=== PATIENT | male | born 1945 | race Caucasian/White ===

== ENCOUNTER 2019-01-22 11:32 | Emergency (ER) | payer OTHER ==
[~2019-01-22] VITALS: Ht 167.6 cm; Wt 72.6 kg
[~2019-01-22 11:32] MED LIST: ASPI-1153 PO; BETA1TAB20 PO; BIMA2.5D5 OP; BRI.2% OP; CARB15DR OP; DRISDOL PO; ENAL5TAB77 PO; LIP20 PO; SLO NIACIN PO; TIMO5DRO15 OP
[2019-01-22 11:34] VITALS: BP_SYST 152
--- NOTE | 2019-01-22 11:34 | NUR ---
Patient to ER bed 04 to gown for evaluation. Side rails up.
--- NOTE | 2019-01-22 11:36 | NUR ---
Pt brought by self, A&Ox4, pt presents to ER with positive orthostatics after he was in a medical center today, pt denies pain or any symptoms, respirations even and unlabored, cap refill <3, VSS, denies weakness, will continue to monitor.
--- NOTE | 2019-01-22 11:40 | NUR ---
Dr Chi at bedside examining patient
[2019-01-22 12:12] LABS: BASOPHILS % (AUTO) 0.3 % (0.0-2.0); EOSINOPHILS # (AUTO) 0.2 K/uL (0.0-0.4); EOSINOPHILS % (AUTO) 1.7 % (0.0-4.0); HEMATOCRIT 37.7 % (36-54); HEMOGLOBIN 12.9 g/dL (14.0-18.0); LYMPHOCYTES # (AUTO) 1.7 K/uL (1.0-5.5); LYMPHOCYTES % (AUTO) 15.3 % (20.5-51.5); MEAN CORPUSCULAR HEMOGLOBIN 32 pg (27-31); MEAN CORPUSCULAR HGB CONC 34 % (32-36); MEAN CORPUSCULAR VOLUME 94 fL (79.0-98.0); MONOCYTES # (AUTO) 0.7 K/uL (0.0-1.0); MONOCYTES % (AUTO) 6.1 % (1.7-9.3); NEUTROPHILS # (AUTO) 8.4 K/uL (1.8-7.7); NEUTROPHILS % (AUTO) 76.6 % (40.0-70.0); PLATELET COUNT (AUTO) 204 K/uL (130-430); RED BLOOD CELL COUNT(AUTO) 4.03 MIL/uL (4.2-6.2); RED CELL DISTRIBUTION WIDTH 13.8 % (9.0-15.0); WHITE BLOOD COUNT (AUTO) 10.9 K/uL (4.8-10.8)
[2019-01-22 12:21] LABS: ANION GAP 7 (5-15); CALCIUM 8.8 mg/dL (8.4-11.0); CHLORIDE 108 mmol/L (98-107); CREATININE 1.64 mg/dL (0.55-1.30); GLUCOSE 135 mg/dL (70-99); POTASSIUM 4.1 mmol/L (3.5-5.1); SODIUM SERUM 143 mmol/L (136-145); UREA NITROGEN, BLOOD 19 mg/dL (8-21)
[2019-01-22 12:22] LABS: PROTHROMBIN TIME 10.4 SECS (9.5-12.5)
[2019-01-22 12:27] LABS: ALANINE AMINOTRANSFERASE 17 U/L (12-78); ALBUMIN 3.7 g/dL (3.4-4.8); ASPARTATE AMINOTRANSFERASE 13 U/L (10-37); TOTAL BILIRUBIN 0.5 mg/dL (0.0-1.0)
--- NOTE | 2019-01-22 14:28 | NUR ---
Patient given written and verbal discharge instructions and verbalizes understanding. ER MD discussed with patient the results and treatment provided. Patient in stable condition. ID arm band removed. No Rx given. Patient educated on pain management and to follow up with PMD. Pain Scale 0/10 . Opportunity for questions provided and answered. Medication side effect fact sheet provided.
[2019-01-22 14:30] VITALS: BP_SYST 127
== END 2019-01-22 14:30 | disposition home or self-care (01) ==
LOC: SED 11:32
DX: I95.9 Hypotension, unspecified (principal); E78.00 Pure hypercholesterolemia, unspecified; E11.9 Type 2 diabetes mellitus without complications; Z79.82 Long term (current) use of aspirin; Z79.899 Other long term (current) drug therapy
CPT/HCPCS: 36415; 71045; 80053; 84484; 85025; 85610-TC; 85730-TC; 93005; 99284

== ENCOUNTER 2019-02-18 18:53 | Emergency (ER) | payer OTHER ==
[~2019-02-18] VITALS: Ht 167.6 cm; Wt 72.6 kg
[2019-02-18 18:59] VITALS: BP_SYST 150
--- NOTE | 2019-02-18 19:00 | NUR ---
Patient to ER bed 7 to gown for evaluation. Side rails up.
--- NOTE | 2019-02-18 19:02 | NUR ---
ER at bedside examining patient.
--- NOTE | 2019-02-18 19:03 | NUR ---
Pt presents to ED c/o HTN 176/101 at home.Pt has no acute distress noted. Pt denies CP or SOB.
--- NOTE | 2019-02-18 19:13 | NUR ---
Pt endorsed to JEEVAN RN
[2019-02-18] MEDS ORDERED: amLODIPine BESYLATE 5 MG TABLET PO ONE (19:15)
--- NOTE | 2019-02-18 19:25 | NUR ---
ASSUMED CARE. RECEIVED ALERT,ORIENTED. AFEBRILE, NOT IN ACUTE DITRESS. DENIES ANY PAIN OR DISCOMFORT. NW=621/92. OTHERWISE STABLE.
[2019-02-18 19:32] LABS: BASOPHILS # (AUTO) 0.1 K/uL (0.0-0.2); BASOPHILS % (AUTO) 0.5 % (0.0-2.0); EOSINOPHILS # (AUTO) 0.2 K/uL (0.0-0.4); EOSINOPHILS % (AUTO) 2.4 % (0.0-4.0); HEMATOCRIT 37.1 % (36-54); HEMOGLOBIN 12.7 g/dL (14.0-18.0); LYMPHOCYTES # (AUTO) 2.1 K/uL (1.0-5.5); LYMPHOCYTES % (AUTO) 20.9 % (20.5-51.5); MEAN CORPUSCULAR HEMOGLOBIN 32 pg (27-31); MEAN CORPUSCULAR HGB CONC 34 % (32-36); MEAN CORPUSCULAR VOLUME 94 fL (79.0-98.0); MONOCYTES % (AUTO) 9.6 % (1.7-9.3); NEUTROPHILS # (AUTO) 6.7 K/uL (1.8-7.7); NEUTROPHILS % (AUTO) 66.6 % (40.0-70.0); PLATELET COUNT (AUTO) 197 K/uL (130-430); RED BLOOD CELL COUNT(AUTO) 3.95 MIL/uL (4.2-6.2); RED CELL DISTRIBUTION WIDTH 14.2 % (9.0-15.0)
--- NOTE | 2019-02-18 19:37 | NUR ---
12 LEAD EKG DONE BY ER RELATIONSHIP MANAGEMENT LEAD.
[2019-02-18 19:44] LABS: ANION GAP 8 (5-15); CALCIUM 8.2 mg/dL (8.4-11.0); CHLORIDE 104 mmol/L (98-107); CREATININE 1.34 mg/dL (0.55-1.30); GLUCOSE 120 mg/dL (70-99); POTASSIUM 3.9 mmol/L (3.5-5.1); SODIUM SERUM 139 mmol/L (136-145); UREA NITROGEN, BLOOD 22 mg/dL (8-21)
--- NOTE | 2019-02-18 19:44 | NUR ---
NORVASC 5 MG PO GIVEN ORDERED.
[2019-02-18 19:55] LABS: ALANINE AMINOTRANSFERASE 18 U/L (12-78); ALBUMIN 3.3 g/dL (3.4-4.8); ASPARTATE AMINOTRANSFERASE 14 U/L (10-37); TOTAL BILIRUBIN 0.4 mg/dL (0.0-1.0)
--- NOTE | 2019-02-18 19:55 | NUR ---
URINE SPECIMEN COLLECTED AND SENT TO THE LAB.
[2019-02-18 20:08] LABS: BILIRUBIN,URINE NEGATIVE (NEGATIVE); BLOOD, URINE NEGATIVE (NEGATIVE); CLARITY/URINE CLEAR (CLEAR); COLOR,URINE YELLOW (YELLOW); GLUCOSE,URINE NEGATIVE (NEGATIVE); KETONES,URINE NEGATIVE (NEGATIVE); LEUKOCYTE ESTERASE ,URINE TRACE (NEGATIVE); NITRITE, URINE NEGATIVE (NEGATIVE); PROTEIN URINE NEGATIVE (NEGATIVE)
[2019-02-18 20:27] LABS: BACTERIA,URINE RARE /HPF (None Seen); RBC,URINE 0-3 /HPF (0-3)
[2019-02-18] MEDS ORDERED: CEPHALEXIN 500 MG CAPSULE PO ONE (20:30)
--- NOTE | 2019-02-18 20:56 | NUR ---
KEFLEX 500 MG PO GIVEN.
--- NOTE | 2019-02-18 21:10 | NUR ---
BP BETTER. MADE MADE AWARE. ER-MD BACK AT BEDSIDE TO RE-EVALUATE AND DISCUSS PLAN OF CARE WITH PATIENT AND FAMILY.
--- NOTE | 2019-02-18 21:25 | NUR ---
DISCHARGED STABLE AND IMPROVED. PRESCRIPTION,VERBAL AND WRITTEN AFTERCARE INSTRUCTIONS GIVEN TO PT.AND FAMILY. VERBALIZED UNDERSTANDING.
[2019-02-18 21:27] VITALS: BP_SYST 153
== END 2019-02-18 21:27 | disposition home or self-care (01) ==
LOC: SED 18:53
DX: I10 Essential (primary) hypertension (principal); N39.0 Urinary tract infection, site not specified; Z79.899 Other long term (current) drug therapy; E11.9 Type 2 diabetes mellitus without complications
CPT/HCPCS: 36415; 80053; 81000-TC; 84484; 85025; 93005; 99284

== ENCOUNTER 2021-07-15 10:11 | Emergency (ER) | payer OTHER ==
[~2021-07-15] VITALS: Ht 167.6 cm; Wt 67.1 kg
[~2021-07-15 10:11] MED LIST changes: -ASPI-1153 PO; +ASPI-1393 PO
--- NOTE | 2021-07-15 10:25 | NUR ---
PT CAME FROM HOME WITH CC OF PAIN WITH URINATION. PT WAS TREATED LAST MONTH FOR THE SAME ISSUE WITH ABX. PT IS STABLE, NAD, VSS, AAOx3, CONCERNED IT REALLY HURTS WITH URINATION.
[2021-07-15 10:27] VITALS: BP_SYST 136
--- NOTE | 2021-07-15 11:00 | NUR ---
ED MD AT BEDSIDE
[2021-07-15 11:04] LABS: BASOPHILS # (AUTO) 0.1 K/uL (0.0-0.2); BASOPHILS % (AUTO) 0.7 % (0.0-2.0); EOSINOPHILS # (AUTO) 0.2 K/uL (0.0-0.4); EOSINOPHILS % (AUTO) 2.8 % (0.0-4.0); HEMATOCRIT 40.8 % (36-54); LYMPHOCYTES # (AUTO) 1.5 K/uL (1.0-5.5); LYMPHOCYTES % (AUTO) 20.1 % (20.5-51.5); MEAN CORPUSCULAR HEMOGLOBIN 31 pg (27-31); MEAN CORPUSCULAR HGB CONC 34 % (32-36); MEAN CORPUSCULAR VOLUME 91 fL (79.0-98.0); MONOCYTES # (AUTO) 0.5 K/uL (0.0-1.0); MONOCYTES % (AUTO) 7.3 % (1.7-9.3); NEUTROPHILS # (AUTO) 5.1 K/uL (1.8-7.7); NEUTROPHILS % (AUTO) 69.1 % (40.0-70.0); PLATELET COUNT (AUTO) 197 K/uL (130-430); RED BLOOD CELL COUNT(AUTO) 4.49 MIL/uL (4.2-6.2); RED CELL DISTRIBUTION WIDTH 14.4 % (9.0-15.0); WHITE BLOOD COUNT (AUTO) 7.4 K/uL (4.8-10.8)
[2021-07-15 11:46] LABS: PROTHROMBIN TIME 10.3 SECS (9.5-12.5)
[2021-07-15 11:48] LABS: ANION GAP 10 (5-15); CALCIUM 9.4 mg/dL (8.4-11.0); CHLORIDE 103 mmol/L (98-107); CREATININE 1.71 mg/dL (0.55-1.30); GLUCOSE 170 mg/dL (70-99); POTASSIUM 4.2 mmol/L (3.5-5.1); SODIUM SERUM 140 mmol/L (136-145); UREA NITROGEN, BLOOD 27 mg/dL (8-21)
[2021-07-15 11:59] LABS: ALANINE AMINOTRANSFERASE 23 U/L (12-78); ALBUMIN 3.6 g/dL (3.4-4.8); ASPARTATE AMINOTRANSFERASE 12 U/L (10-37); TOTAL BILIRUBIN 0.4 mg/dL (0.0-1.0)
[2021-07-15 13:00] VITALS: BP_SYST 162
[2021-07-15 13:46] LABS: BILIRUBIN,URINE NEGATIVE (NEGATIVE); BLOOD, URINE 1+ (NEGATIVE); CLARITY/URINE TURBID (CLEAR); COLOR,URINE YELLOW (YELLOW); GLUCOSE,URINE NEGATIVE (NEGATIVE); KETONES,URINE NEGATIVE (NEGATIVE); LEUKOCYTE ESTERASE ,URINE 3+ (NEGATIVE); NITRITE, URINE NEGATIVE (NEGATIVE); PROTEIN URINE 1+ (NEGATIVE)
[2021-07-15 14:21] LABS: BACTERIA,URINE MANY /HPF (None Seen); MUCUS,URINE 1+ /LPF (None Seen); WBC,URINE >100 /HPF (0-3)
[2021-07-15] MEDS ORDERED: CEFI200T PO (14:28)
[2021-07-15] MEDS ORDERED: PHEN-726 PO (14:29)
[2021-07-15] MEDS ORDERED: cefTRIAXone 1 GM VIAL IM ONE (14:30)
[2021-07-15] MEDS ORDERED: NACL 0.9% 1,000 ML IV ONE (14:30)
[2021-07-15] MEDS ORDERED: cefTRIAXone 1 GM IVPB PREMIX 50 ML IV ONE (14:40)
--- NOTE | 2021-07-15 14:55 | NUR ---
IV NS COMPLETED
--- NOTE | 2021-07-15 14:55 | NUR ---
Patient given written and verbal discharge instructions and verbalizes understanding. ER MD discussed with patient the results and treatment provided. Patient in stable condition. ID arm band removed. IV catheter removed intact and dressing applied, no active bleeding. Rx of given. Patient educated on pain management and to follow up with PMD. Pain Scale 0/10. Opportunity for questions provided and answered. Medication side effect fact sheet provided.
== END 2021-07-15 14:55 | disposition home or self-care (01) ==
LOC: SED 10:11
DX: N39.0 Urinary tract infection, site not specified (principal); E11.9 Type 2 diabetes mellitus without complications; I10 Essential (primary) hypertension; Z79.899 Other long term (current) drug therapy
CPT/HCPCS: 36415; 80053; 81000; 83605; 84484; 85025; 85610; 87040; 87086; 87186; 93005; 96365; 99284; J0696

== ENCOUNTER 2021-08-05 01:05 | Inpatient (IN) | payer OTHER ==
[~2021-08-05] VITALS: Ht 165.1 cm; Wt 71.2 kg
[~2021-08-05 01:05] MED LIST changes: +CEFI200T PO; +PHEN-726 PO
[2021-08-05 01:10] VITALS: BP_SYST 178
--- NOTE | 2021-08-05 01:10 | NUR ---
Patient to ER bed 3 to gown for evaluation. Side rails up. Report given to Brianda AMARO.
--- NOTE | 2021-08-05 01:11 | NUR ---
Pt BIB ambulance due to increasing dementia. called 911 after pt locked himself in the room and was noted shadow boxing. Pt arrived to ED in no acute distress. A/O x1 to name. No acute signs of distress. Breathing adequately on RA. Addendum: 08/05/21 at 0339 by [email or web address] SONDRA Lamar
--- NOTE | 2021-08-05 01:12 | NUR ---
ER at bedside examining patient.
--- NOTE | 2021-08-05 02:45 | NUR ---
MOOSE collected and sent to lab.
--- NOTE | 2021-08-05 03:00 | NUR ---
# 20 gauge angiocath placed to L HAND. Use of asceptic technique. Opsite placed over site. Blood return noted. Blood for lab drawn from site. Flushed with 10 cc of normal saline. No evidence of infiltration noted. Patient tolerated well.
[2021-08-05 03:08] LABS: BASOPHILS % (AUTO) 0.4 % (0.0-2.0); EOSINOPHILS # (AUTO) 0.2 K/uL (0.0-0.4); EOSINOPHILS % (AUTO) 2.6 % (0.0-4.0); HEMATOCRIT 43.4 % (36-54); HEMOGLOBIN 14.6 g/dL (14.0-18.0); LYMPHOCYTES # (AUTO) 1.7 K/uL (1.0-5.5); LYMPHOCYTES % (AUTO) 23.1 % (20.5-51.5); MEAN CORPUSCULAR HEMOGLOBIN 31 pg (27-31); MEAN CORPUSCULAR HGB CONC 34 % (32-36); MEAN CORPUSCULAR VOLUME 91 fL (79.0-98.0); MONOCYTES # (AUTO) 0.6 K/uL (0.0-1.0); MONOCYTES % (AUTO) 8.3 % (1.7-9.3); NEUTROPHILS # (AUTO) 4.8 K/uL (1.8-7.7); NEUTROPHILS % (AUTO) 65.6 % (40.0-70.0); PLATELET COUNT (AUTO) 196 K/uL (130-430); RED BLOOD CELL COUNT(AUTO) 4.77 MIL/uL (4.2-6.2); RED CELL DISTRIBUTION WIDTH 14.7 % (9.0-15.0); WHITE BLOOD COUNT (AUTO) 7.3 K/uL (4.8-10.8)
[2021-08-05 04:06] LABS: ANION GAP 9 (5-15); CALCIUM 8.8 mg/dL (8.4-11.0); CHLORIDE 103 mmol/L (98-107); CREATININE 1.57 mg/dL (0.55-1.30); GLUCOSE 123 mg/dL (70-99); POTASSIUM 4.2 mmol/L (3.5-5.1); SODIUM SERUM 139 mmol/L (136-145); UREA NITROGEN, BLOOD 18 mg/dL (8-21)
[2021-08-05 04:11] LABS: ALANINE AMINOTRANSFERASE 25 U/L (12-78); ALBUMIN 3.9 g/dL (3.4-4.8); ASPARTATE AMINOTRANSFERASE 18 U/L (10-37); TOTAL BILIRUBIN 0.6 mg/dL (0.0-1.0)
--- NOTE | 2021-08-05 05:23 | NUR ---
Admit bed requested Patient will be admitted to care of . Admitted to MS unit. Diagnosis DEMENTIA Inpatient (Yes or No) YES Observation (Yes or No) NO Orientation concerns or request close to nursing station (Yes or No) YES Covid Status PENDING On vent or bipap NO Isolation requirements NO Needs a sitter NO From Home (Yes or if No enter name of facility) YES Requires Dialysis (Yes or No) NO Med Rec Completed (Yes of No) PENDING
--- NOTE | 2021-08-05 06:46 | NUR ---
Pt resting in bed. No acute signs of distress. Breathing adequately on RA.
--- NOTE | 2021-08-05 07:36 | NUR ---
Reviewed POC with pt., attempted to reorient him, alert though oriented to name only but redirectable and cooperative, denies any pain, only concern is to find his clothes so he can go home
--- NOTE | 2021-08-05 07:47 | NUR ---
unable to do med reconcilliation, pt. confused, unable to contact
[2021-08-05 08:00] VITALS: BP_SYST 188
--- NOTE | 2021-08-05 08:00 | NUR ---
ADMISSION NOTE Received patient from ER via wheelchair, received report from Obdulia AMARO. Patient admitted with diagnosis of dementia. Patient oriented to hospital routine, call light, toileting and safety-patient verbalized understanding. All needs met at this time, and safety checks made. Will continue to monitor.
--- NOTE | 2021-08-05 08:00 | NUR ---
Patient will be admitted to care of . Admitted to med surg unit. Will go to room 112B. Belongings list completed. Complete and up to date summary report printed. SBAR report given at bedside with Gauri opportunity for questions.
[2021-08-05 09:00] VITALS: BP_SYST 188
[2021-08-05] MEDS ORDERED: cloNIDine HCL 0.1 MG TABLET PO PRN (09:00)
[2021-08-05] MEDS: HYDROCHLOROTHIAZIDE 25 MG TABLET (HCTZ) PO SCH (09:31)
[2021-08-05 11:00] VITALS: BP_SYST 206
[2021-08-05] MEDS ORDERED: NALOXONE HCL 0.4 MG/ML AMP (NARCAN) IVP PRN ×2 (11:15)
[2021-08-05] MEDS ORDERED: DRISDOL 50000 UNIT PO SCH (11:15)
[2021-08-05] MEDS ORDERED: HYDROcodone/ACETAMIN 10-325 MG TAB PO PRN (11:15)
[2021-08-05] MEDS ORDERED: ENALAPRIL MALEATE Non-Formular 5 MG TABLET PO SCH (11:15)
[2021-08-05] MEDS ORDERED: HYDROcodone/ACETAMIN 5-325 MG TAB (NORCO/ VICODIN) PO PRN (11:15)
[2021-08-05] MEDS ORDERED: ONDANSETRON HCL 4 MG/2 ML VIAL IVP PRN (11:15)
[2021-08-05] MEDS ORDERED: ACETAMINOPHEN 325 MG TABLET PO PRN ×2 (11:15→12:15)
--- NOTE | 2021-08-05 11:27 | NUR ---
CONSULTATION PAGED REASON FOR CONSULTATIONlHTN WAS CONSULT CALED?Y PERSON WHO WAS NOTIFIED:MOODY CONSULTING PHYSICIAN:LEIGH FRYE AUTOMOBILE TAILLIGHT ASSEMBLER SPECIALTY:CARDIO AUTOMOBILE TAILLIGHT ASSEMBLER PHONE NUMBER:[phone] REQUESTING PHYSICIAN:ARIANA FRYE
[2021-08-05] MEDS ORDERED: lisinopriL 20 MG TABLET PO ONE (12:15)
[2021-08-05] MEDS ORDERED: ERGOCALCIFEROL 8000 UNITS/ML ORAL SOLUTION, 60 ML BOTTLE PO SCH (13:15)
--- NOTE | 2021-08-05 13:25 | NUR ---
ROUNDS Patient in bed resting with no sign of distress and denies pain. Patient is confused, oriented only to self and likes to get out of bed. He is able to walk with steady gait but has attempted to leave his room and wander the halls. Patient is able to be redirected. has expressed concern about her being combative when he is agitated. Safety checks made and all needs met at this time. Will continue to monitor.
[2021-08-05] MEDS ORDERED: NORMAL SALINE 5 ML DISP.SYRIN IVF SCH (14:00)
[2021-08-05] MEDS: NORMAL SALINE 5 ML DISP.SYRIN IVF SCH ×2 (14:00→22:00)
[2021-08-05 16:21] VITALS: BP_SYST 177
[2021-08-05] MEDS: PHENAZOPYRIDINE HCL 100 MG TABLET PO SCH ×2 (18:14→20:43)
--- NOTE | 2021-08-05 18:39 | NUR ---
PATIENT MOVED TO ROOM 114A Patient moved rooms for the comfort of his roommate. Patient is confused and wandering into his roommates space.
--- NOTE | 2021-08-05 19:27 | NUR ---
CLOSING NOTE Patient in bed resting. Patient has been very active and moving around the room. He attempts to leave and wander around the unit but is easily redirected. Patient is confused, oriented only to self. He was observed talking to himself. Patient currently has no IV access as he pulled out his previous access site, no active bleeding at this time. Safety checks made and all needs met at this time. Endorsed to retail shift supervisor nurse and answered all questions.
[2021-08-05 20:00] VITALS: BP_SYST 93
[2021-08-05] MEDS: ATORVASTATIN 20 MG TABLET PO SCH (20:43)
[2021-08-05] MEDS: QUEtiapine FUMARATE 25 MG TABLET PO SCH (20:43)
[2021-08-05] MEDS ORDERED: PEG 400/HYPROMELLOSE/GLYCERIN 15 ML DROPS OP PRN (21:00)
[2021-08-05] MEDS ORDERED: BIMATOPROST 0.01%, 2.5 ML EYE DROPS OP SCH (21:00)
[2021-08-05] MEDS: BRIMONIDINE TARTRATE 0.2% 5 mL EYE DROPS OP SCH (21:00)
[2021-08-05] MEDS: LATANOPROST 2.5 ML DROPS (XALATAN) OP SCH (21:00)
[2021-08-05] MEDS: TIMOLOL MALEATE 0.5% OPHTHALMIC DROPS 5 ML OP SCH (21:00)
[2021-08-06 00:30] VITALS: BP_SYST 109
[2021-08-06] MEDS: NORMAL SALINE 5 ML DISP.SYRIN IVF SCH ×3 (06:00→21:41)
[2021-08-06 07:52] LABS: BASOPHILS % (AUTO) 0.3 % (0.0-2.0); EOSINOPHILS # (AUTO) 0.2 K/uL (0.0-0.4); EOSINOPHILS % (AUTO) 2.1 % (0.0-4.0); HEMATOCRIT 40.2 % (36-54); HEMOGLOBIN 13.8 g/dL (14.0-18.0); LYMPHOCYTES # (AUTO) 2.8 K/uL (1.0-5.5); LYMPHOCYTES % (AUTO) 31.8 % (20.5-51.5); MEAN CORPUSCULAR HEMOGLOBIN 31 pg (27-31); MEAN CORPUSCULAR HGB CONC 34 % (32-36); MEAN CORPUSCULAR VOLUME 90 fL (79.0-98.0); MONOCYTES # (AUTO) 0.9 K/uL (0.0-1.0); MONOCYTES % (AUTO) 10.2 % (1.7-9.3); NEUTROPHILS # (AUTO) 4.8 K/uL (1.8-7.7); NEUTROPHILS % (AUTO) 55.6 % (40.0-70.0); PLATELET COUNT (AUTO) 196 K/uL (130-430); RED BLOOD CELL COUNT(AUTO) 4.47 MIL/uL (4.2-6.2); RED CELL DISTRIBUTION WIDTH 14.1 % (9.0-15.0); WHITE BLOOD COUNT (AUTO) 8.7 K/uL (4.8-10.8)
[2021-08-06] MEDS: lisinopriL 20 MG TABLET PO SCH (09:00)
[2021-08-06] MEDS ORDERED: SLO NIACIN PO SCH (09:00)
[2021-08-06] MEDS ORDERED: CEFIXIME PO SCH (09:00)
--- NOTE | 2021-08-06 09:00 | NUR ---
Reception Specialist VANITA Ramsey received a call from patient's Gwen requesting update on his care. VANITA provided Gwen with extension to Nurses station informed her patient's RN is You. Addendum: 08/06/21 at 1418 by Roxy RomelMark Rodrigueznicolas WALDRON PUBLIC WORKS INSPECTOR met with patient's RN to provide him patient's 's contact info in the event she was not able to call the nurses station. During this time patient's arrived and became visibly upset when she walked into patient's room and observed his behavior. VANITA utilized empathetic and reflective listening techniques to deescalate Gwen. She expressed concern for his mental state, and shared he has never been this confused before "only at night". Both SONDRA Orta and VANITA provided support to patient's . She also shared the patient receives benefits from the [place], and had reached out to them for support with his care. She expressed a need for support at home as they live alone. VANITA explored potential support system, but the patient stated they do not have children patient has 2 brothers but stated "they wont help". VANITA and RN provied continued support to patient's , including walking her back in to the room when she was ready. VANITA will continue to be available.
[2021-08-06 09:02] LABS: ANION GAP 12 (5-15); CALCIUM 8.4 mg/dL (8.4-11.0); CHLORIDE 103 mmol/L (98-107); CREATININE 1.84 mg/dL (0.55-1.30); GLUCOSE 102 mg/dL (70-99); PHOSPHORUS 4.4 mg/dL (2.7-4.5); POTASSIUM 3.9 mmol/L (3.5-5.1); SODIUM SERUM 140 mmol/L (136-145); UREA NITROGEN, BLOOD 21 mg/dL (8-21)
[2021-08-06] MEDS: ASPIRIN 81 MG TABLET(ECOTRIN) PO SCH (10:09)
[2021-08-06] MEDS: BETA-CAROTENE W-C & E/ZN/CU TABLET PO SCH (10:09)
[2021-08-06] MEDS: QUEtiapine FUMARATE 25 MG TABLET PO SCH ×2 (10:10→20:43)
[2021-08-06] MEDS: PHENAZOPYRIDINE HCL 100 MG TABLET PO SCH ×3 (10:10→20:38)
[2021-08-06] MEDS: HYDROCHLOROTHIAZIDE 25 MG TABLET (HCTZ) PO SCH (10:21)
[2021-08-06] MEDS: BRIMONIDINE TARTRATE 0.2% 5 mL EYE DROPS OP SCH ×2 (10:28→20:38)
[2021-08-06] MEDS: TIMOLOL MALEATE 0.5% OPHTHALMIC DROPS 5 ML OP SCH ×2 (10:28→20:38)
[2021-08-06] MEDS: CARVEDILOL 6.25 MG TABLET (COREG) PO SCH ×3 (10:30→20:48)
[2021-08-06] MEDS ORDERED: CARVEDILOL 6.25 MG TABLET (COREG) PO ONE (11:30)
[2021-08-06 12:00] VITALS: BP_SYST 128
--- NOTE | 2021-08-06 16:19 | NUR ---
Starch Crab BALLOON DESIGN PRINTER spoke with Senior Oracle Soa Developer Meghan regarding order for placement due to patient's dementia. According to Meghan, insurance will not cover if it is not a medical necessity. Patient's will need to cover cost, BALLOON DESIGN PRINTER informed disease case manager resources had been provided to spouse as well as spouse has already connected with VA to obtain information on supports.
[2021-08-06 16:42] VITALS: BP_SYST 94
[2021-08-06] MEDS: LATANOPROST 2.5 ML DROPS (XALATAN) OP SCH (20:38)
[2021-08-06 20:41] VITALS: BP_SYST 99
[2021-08-06] MEDS: ATORVASTATIN 20 MG TABLET PO SCH (20:43)
[2021-08-07 00:30] VITALS: BP_SYST 97
[2021-08-07] MEDS: NORMAL SALINE 5 ML DISP.SYRIN IVF SCH ×3 (01:13→22:00)
[2021-08-07 07:29] LABS: BASOPHILS % (AUTO) 0.5 % (0.0-2.0); EOSINOPHILS # (AUTO) 0.2 K/uL (0.0-0.4); EOSINOPHILS % (AUTO) 1.9 % (0.0-4.0); HEMATOCRIT 41.4 % (36-54); HEMOGLOBIN 14.2 g/dL (14.0-18.0); LYMPHOCYTES # (AUTO) 2.4 K/uL (1.0-5.5); LYMPHOCYTES % (AUTO) 27.7 % (20.5-51.5); MEAN CORPUSCULAR HEMOGLOBIN 31 pg (27-31); MEAN CORPUSCULAR HGB CONC 34 % (32-36); MEAN CORPUSCULAR VOLUME 91 fL (79.0-98.0); MONOCYTES # (AUTO) 0.9 K/uL (0.0-1.0); MONOCYTES % (AUTO) 10.7 % (1.7-9.3); NEUTROPHILS # (AUTO) 5.1 K/uL (1.8-7.7); NEUTROPHILS % (AUTO) 59.2 % (40.0-70.0); PLATELET COUNT (AUTO) 191 K/uL (130-430); RED BLOOD CELL COUNT(AUTO) 4.57 MIL/uL (4.2-6.2); RED CELL DISTRIBUTION WIDTH 14.1 % (9.0-15.0); WHITE BLOOD COUNT (AUTO) 8.6 K/uL (4.8-10.8)
[2021-08-07 08:40] LABS: ALANINE AMINOTRANSFERASE 15 U/L (12-78); ALBUMIN 3.7 g/dL (3.4-4.8); ANION GAP 6 (5-15); ASPARTATE AMINOTRANSFERASE 20 U/L (10-37); CALCIUM 8.7 mg/dL (8.4-11.0); CHLORIDE 103 mmol/L (98-107); CREATININE 2.57 mg/dL (0.55-1.30); GLUCOSE 103 mg/dL (70-99); POTASSIUM 4.1 mmol/L (3.5-5.1); SODIUM SERUM 137 mmol/L (136-145); TOTAL BILIRUBIN 0.7 mg/dL (0.0-1.0); UREA NITROGEN, BLOOD 31 mg/dL (8-21)
[2021-08-07] MEDS: lisinopriL 20 MG TABLET PO SCH (09:00)
[2021-08-07] MEDS: PHENAZOPYRIDINE HCL 100 MG TABLET PO SCH (09:20)
[2021-08-07] MEDS: BETA-CAROTENE W-C & E/ZN/CU TABLET PO SCH (09:20)
[2021-08-07] MEDS: ASPIRIN 81 MG TABLET(ECOTRIN) PO SCH (09:21)
[2021-08-07] MEDS: HYDROCHLOROTHIAZIDE 25 MG TABLET (HCTZ) PO SCH (09:21)
[2021-08-07] MEDS: CARVEDILOL 6.25 MG TABLET (COREG) PO SCH ×2 (09:22→21:00)
[2021-08-07] MEDS: QUEtiapine FUMARATE 25 MG TABLET PO SCH ×2 (09:23→21:00)
[2021-08-07] MEDS: TIMOLOL MALEATE 0.5% OPHTHALMIC DROPS 5 ML OP SCH (09:37)
[2021-08-07] MEDS: BRIMONIDINE TARTRATE 0.2% 5 mL EYE DROPS OP SCH (09:37)
--- NOTE | 2021-08-07 10:25 | NUR ---
Pt wandering in the hallway for 25 minutes. Nurse has attempted redirecting the patient multiple times to go back to [facility]. Pt is confused and disoriented. Unable to process directions and follow commands. Patient became agitated that the nurse was following him. Nurse explained to the patient that he that he was following the patient to ensure patient safety. Nurse brought a wheelchair for the patient to sit in, because the patient looked fatigued as evidenced by the pt bending over and putting his hands on his knee. Nurse offered to take the patient back to his room and asked the patient to sit down. Pt turned around to the nurse angry, but became wobbly. The nurse caught the patient and sat him down in the wheelchair. Patient became agitated and started trying to hit the nurse. Nurse asked other staff for help. At this point, a second nurse came in and deescalated. Pt is currently sitting by the window looking outside. notified. New order for a one itme dose of Ativan 2mg IM. Will continue to monitor
[2021-08-07] MEDS ORDERED: LORazepam 2 MG/ML VIAL IM ONE (11:15)
--- NOTE | 2021-08-07 13:30 | NUR ---
is currently at bedside talking to the patient. She said that the patient is acting paranoid and saying that people are following him and trying to kill him. Nurse administered Ativan Im while family was in the room. PT is currently sitting up and eating lunch with family in the room. Will continue to monitor
--- NOTE | 2021-08-07 13:50 | NUR ---
is leaving the unit. States that she is unable to handle the patient as he is too confused to be able to redirect. Will continue to monitor
--- NOTE | 2021-08-07 14:20 | NUR ---
S/FALL REPORTED BY ASHLEE RN REG NURSE THAT HE FOUND PATIENT ON THE FLOOR LYINNG ON HIS RIGHT SIDE FACING THE WINDOW CLOSED TO THE LEFT SIDE OF THE BED. PER NURSE NO FURTHER INJURY NOTED. PATIENT HAS DEMENTIA, WONDER AROUND THE ROOM AND HALLWAY, GOES TO A DIFFERENT ROOM. NOTIFIED REED AND MADE AWARE, AGREED TO PUT BILATERAL RESTRAINT TO PATIENT. DR BOWERS MADE AWARE OF RECENT FALL
--- NOTE | 2021-08-07 16:16 | NUR ---
RADIOLOGY ATTEMPTED TO TAKE XRAYS AND CT OF THE CHEST. PT IS MOVING TOO MUCH TO ALLOW FOR A CLEAR IMAGE. NOTIFIED. NEW ORDERS FOR HALIDOL AND BENADRYL PRN FOR AGITATION. WILL CONTINUE TO MONITOR
--- NOTE | 2021-08-07 16:27 | NUR ---
Superintendent Job PORTRAIT CONSULTANT attempted contact with Bunch Breaker Machine Operator Meghan per request of apartment property manager Zeny as is expressing concern over placement. PORTRAIT CONSULTANT informed RN that patient's has been provided with resources to begin seeking support including her having already contacted [facility] for benefits.
[2021-08-07] MEDS ORDERED: DIPHENHYDRAMINE HCL 50 MG CAPSULE PO PRN (16:30)
[2021-08-07] MEDS: HALOPERIDOL LACTATE 5 MG/ML VIAL IM PRN ×2 (17:25→21:43)
--- NOTE | 2021-08-07 17:31 | NUR ---
PT RECEIVED HALDOL IM INJECTION. VS ARE 115/74, HR 84 O2 95%. RADIOLOGY WILL BE PERFORMING CT OF THE HEAD, AND XRAY OF THE HIP AND ELBOW FOLLOWING STATUS POST FALL. WILL CONTINUE TO MONITOR
[2021-08-07] MEDS: BRIMONIDINE TARTRATE 0.2% 5 mL EYE DROPS BOTH EYES SCH ×2 (17:34→22:42)
[2021-08-07] MEDS: ATORVASTATIN 20 MG TABLET PO SCH (21:00)
[2021-08-07] MEDS: LATANOPROST 2.5 ML DROPS (XALATAN) BOTH EYES SCH (21:00)
--- NOTE | 2021-08-07 21:45 | NUR ---
UPON ATTEMPTING TO CHECK PT'S BP PT CLENCHED FISTS AND BEGAN TO POSTURE AND ATTEMPT TO SHAKE/REMOVE BP CUFF. PT MEDICATED FOR AGITATION.
[2021-08-07] MEDS: TIMOLOL MALEATE 0.5% OPHTHALMIC DROPS 5 ML BOTH EYES SCH (22:41)
[2021-08-08] MEDS: HALOPERIDOL LACTATE 5 MG/ML VIAL IM PRN (04:57)
[2021-08-08] MEDS: NORMAL SALINE 5 ML DISP.SYRIN IVF SCH ×3 (04:59→22:50)
--- NOTE | 2021-08-08 08:00 | NUR ---
received asleep, no IV line, not on respiratory distress. breakfast served, ate one slice of bread and half of orange and few sips of water. calm and cooperative, alert and oriented x 4
[2021-08-08] MEDS: TIMOLOL MALEATE 0.5% OPHTHALMIC DROPS 5 ML BOTH EYES SCH ×2 (08:35→20:57)
[2021-08-08] MEDS: QUEtiapine FUMARATE 25 MG TABLET PO SCH ×2 (08:35→20:56)
[2021-08-08] MEDS: ASPIRIN 81 MG TABLET(ECOTRIN) PO SCH (08:35)
[2021-08-08] MEDS: BRIMONIDINE TARTRATE 0.2% 5 mL EYE DROPS BOTH EYES SCH ×3 (08:35→20:57)
[2021-08-08] MEDS: lisinopriL 20 MG TABLET PO SCH (08:37)
[2021-08-08] MEDS: CARVEDILOL 6.25 MG TABLET (COREG) PO SCH ×2 (08:37→20:56)
[2021-08-08] MEDS: HYDROCHLOROTHIAZIDE 25 MG TABLET (HCTZ) PO SCH (08:38)
[2021-08-08] MEDS: BETA-CAROTENE W-C & E/ZN/CU TABLET PO SCH (09:45)
--- NOTE | 2021-08-08 13:00 | NUR ---
visited by family member, calm and cooperative since morning, able to void 3 times and ambulates with assist to restroom, on his third attempt he was shaking on his knees and brought back to his bed with the help of his brother. able to communicate well with no confusion episodes noted
--- NOTE | 2021-08-08 15:24 | NUR ---
NEPHRO CONSULT: LEFT MESSAGE TO DR MARILYN BUI RE:NEVA.
[2021-08-08] MEDS: D5/0.45 NS 1,000 ML IV SCH ×2 (17:00→22:51)
--- NOTE | 2021-08-08 17:26 | NUR ---
IV inserted at right hand G22, IV fluid of d5 .45 nacl started as ordered at 100cc/hr, offered apple juice and finished 3 cups or 350ml in total.
[2021-08-08 20:00] VITALS: BP_SYST 151
[2021-08-08] MEDS: ATORVASTATIN 20 MG TABLET PO SCH (20:56)
[2021-08-08] MEDS: LATANOPROST 2.5 ML DROPS (XALATAN) BOTH EYES SCH (20:57)
[2021-08-09] MEDS: NORMAL SALINE 5 ML DISP.SYRIN IVF SCH ×3 (06:08→22:38)
--- NOTE | 2021-08-09 06:41 | NUR ---
closing note patient is no longer on restraints. He is noted to be confused but is able to redirect. He ate 75% of his dinner. patient took his medication with no issues. he stated he had to urinate he was given the urinal. patient took his medication with no issues. Three times during the night he tried to get out of his bed but was easily redirected. UA was collected and taken to the lab.
[2021-08-09 06:58] LABS: BILIRUBIN,URINE NEGATIVE (NEGATIVE); BLOOD, URINE NEGATIVE (NEGATIVE); CLARITY/URINE CLEAR (CLEAR); COLOR,URINE YELLOW (YELLOW); GLUCOSE,URINE NEGATIVE (NEGATIVE); KETONES,URINE NEGATIVE (NEGATIVE); LEUKOCYTE ESTERASE ,URINE NEGATIVE (NEGATIVE); NITRITE, URINE POSITIVE (NEGATIVE); PH,URINE 5.5 (5.0-8.0); PROTEIN URINE NEGATIVE (NEGATIVE)
[2021-08-09 07:20] LABS: BACTERIA,URINE FEW /HPF (None Seen); HYALINE CASTS, URINE 0-10 /LPF (None Seen); MUCUS,URINE 2+ /LPF (None Seen); RBC,URINE 0-3 /HPF (0-3)
[2021-08-09 08:00] VITALS: BP_SYST 105; BP_SYST 109
[2021-08-09] MEDS: BRIMONIDINE TARTRATE 0.2% 5 mL EYE DROPS BOTH EYES SCH ×3 (08:24→21:33)
[2021-08-09] MEDS: TIMOLOL MALEATE 0.5% OPHTHALMIC DROPS 5 ML BOTH EYES SCH ×2 (08:24→21:33)
[2021-08-09] MEDS: BETA-CAROTENE W-C & E/ZN/CU TABLET PO SCH (08:25)
[2021-08-09] MEDS: ASPIRIN 81 MG TABLET(ECOTRIN) PO SCH (08:25)
[2021-08-09] MEDS: QUEtiapine FUMARATE 25 MG TABLET PO SCH ×2 (08:25→21:29)
[2021-08-09] MEDS: CARVEDILOL 6.25 MG TABLET (COREG) PO SCH ×2 (08:26→21:29)
[2021-08-09 08:29] LABS: BASOPHILS % (AUTO) 0.4 % (0.0-2.0); EOSINOPHILS # (AUTO) 0.2 K/uL (0.0-0.4); EOSINOPHILS % (AUTO) 2.3 % (0.0-4.0); HEMATOCRIT 41.7 % (36-54); HEMOGLOBIN 14.2 g/dL (14.0-18.0); LYMPHOCYTES # (AUTO) 2.1 K/uL (1.0-5.5); MEAN CORPUSCULAR HEMOGLOBIN 31 pg (27-31); MEAN CORPUSCULAR HGB CONC 34 % (32-36); MEAN CORPUSCULAR VOLUME 91 fL (79.0-98.0); MONOCYTES # (AUTO) 0.8 K/uL (0.0-1.0); MONOCYTES % (AUTO) 10.2 % (1.7-9.3); NEUTROPHILS # (AUTO) 4.6 K/uL (1.8-7.7); NEUTROPHILS % (AUTO) 60.1 % (40.0-70.0); PLATELET COUNT (AUTO) 181 K/uL (130-430); RED CELL DISTRIBUTION WIDTH 14.1 % (9.0-15.0); WHITE BLOOD COUNT (AUTO) 7.7 K/uL (4.8-10.8)
[2021-08-09 08:41] LABS: ANION GAP 9 (5-15); CALCIUM 8.1 mg/dL (8.4-11.0); CHLORIDE 100 mmol/L (98-107); CREATININE 2.53 mg/dL (0.55-1.30); GLUCOSE 127 mg/dL (70-99); POTASSIUM 4.1 mmol/L (3.5-5.1); SODIUM SERUM 136 mmol/L (136-145); UREA NITROGEN, BLOOD 41 mg/dL (8-21)
[2021-08-09] MEDS: amLODIPine BESYLATE 5 MG TABLET PO SCH (09:00)
[2021-08-09 12:18] VITALS: BP_SYST 106
[2021-08-09] MEDS: D5/0.45 NS 1,000 ML IV SCH ×2 (16:33→16:36)
[2021-08-09 16:42] VITALS: BP_SYST 110
[2021-08-09 16:42] LABS: URINE SODIUM, RANDOM 47 mmol/L (40-220)
--- NOTE | 2021-08-09 19:37 | NUR ---
ENDORSEMENT BEDSIDE SHIFT REPORT GIVEN TO NIGHT RN FOR CONTINUATION OF CARE
[2021-08-09] MEDS: ATORVASTATIN 20 MG TABLET PO SCH (21:29)
[2021-08-09] MEDS: LATANOPROST 2.5 ML DROPS (XALATAN) BOTH EYES SCH (21:30)
[2021-08-09 21:36] VITALS: BP_SYST 126
[2021-08-10 00:20] VITALS: BP_SYST 160
[2021-08-10] MEDS: D5/0.45 NS 1,000 ML IV SCH ×2 (02:21→15:17)
[2021-08-10] MEDS: NORMAL SALINE 5 ML DISP.SYRIN IVF SCH ×3 (06:18→21:38)
[2021-08-10 07:05] LABS: BASOPHILS % (AUTO) 0.4 % (0.0-2.0); EOSINOPHILS # (AUTO) 0.1 K/uL (0.0-0.4); EOSINOPHILS % (AUTO) 1.9 % (0.0-4.0); HEMATOCRIT 40.8 % (36-54); LYMPHOCYTES # (AUTO) 1.7 K/uL (1.0-5.5); LYMPHOCYTES % (AUTO) 21.7 % (20.5-51.5); MEAN CORPUSCULAR HEMOGLOBIN 31 pg (27-31); MEAN CORPUSCULAR HGB CONC 34 % (32-36); MEAN CORPUSCULAR VOLUME 90 fL (79.0-98.0); MONOCYTES # (AUTO) 0.7 K/uL (0.0-1.0); MONOCYTES % (AUTO) 9.6 % (1.7-9.3); NEUTROPHILS # (AUTO) 5.1 K/uL (1.8-7.7); NEUTROPHILS % (AUTO) 66.4 % (40.0-70.0); PLATELET COUNT (AUTO) 189 K/uL (130-430); RED BLOOD CELL COUNT(AUTO) 4.52 MIL/uL (4.2-6.2); RED CELL DISTRIBUTION WIDTH 13.9 % (9.0-15.0); WHITE BLOOD COUNT (AUTO) 7.6 K/uL (4.8-10.8)
[2021-08-10 07:30] LABS: ALANINE AMINOTRANSFERASE 16 U/L (12-78); ALBUMIN 3.5 g/dL (3.4-4.8); ANION GAP 7 (5-15); ASPARTATE AMINOTRANSFERASE 22 U/L (10-37); CALCIUM 8.2 mg/dL (8.4-11.0); CHLORIDE 103 mmol/L (98-107); CREATININE 2.04 mg/dL (0.55-1.30); GLUCOSE 123 mg/dL (70-99); PHOSPHORUS 2.9 mg/dL (2.7-4.5); POTASSIUM 3.7 mmol/L (3.5-5.1); SODIUM SERUM 137 mmol/L (136-145); TOTAL BILIRUBIN 0.6 mg/dL (0.0-1.0); UREA NITROGEN, BLOOD 31 mg/dL (8-21)
--- NOTE | 2021-08-10 08:00 | NUR ---
Opening notes: Patient resting in bed. Breathing even and non labored to RA. Patient is confused. Sitter at bedside. Fall, safety and aspiration measures reinforced. Call light within reach.
[2021-08-10 08:05] VITALS: BP_SYST 143
[2021-08-10] MEDS: QUEtiapine FUMARATE 25 MG TABLET PO SCH ×2 (10:07→21:33)
[2021-08-10] MEDS: amLODIPine BESYLATE 5 MG TABLET PO SCH (10:08)
[2021-08-10] MEDS: ASPIRIN 81 MG TABLET(ECOTRIN) PO SCH (10:08)
[2021-08-10] MEDS: BRIMONIDINE TARTRATE 0.2% 5 mL EYE DROPS BOTH EYES SCH ×3 (10:08→21:35)
[2021-08-10] MEDS: TIMOLOL MALEATE 0.5% OPHTHALMIC DROPS 5 ML BOTH EYES SCH ×2 (10:09→21:35)
[2021-08-10] MEDS: BETA-CAROTENE W-C & E/ZN/CU TABLET PO SCH (10:22)
[2021-08-10] MEDS: CARVEDILOL 6.25 MG TABLET (COREG) PO SCH ×2 (10:22→21:34)
--- NOTE | 2021-08-10 11:58 | NUR ---
Riveter Hand VANITA Ramsey contacted patient's Gwen Bunn to obtain an update on efforts to locate patient care as she has expressed she is unable to take him home. Gwen stated she has been in contact with a facility in [place] (unable to recall name of facility) and was making efforts to address the financial needs including a meeting today with patient's [employer] to inquire into receiving money from an annuity. She is also continuing exploring supports from patient's VA benefits. She also shared she has a niece who is helping her, but she resides in [place] and is only here for a short time. RAILROAD COMMISSIONER provided her with a number for the following program - [facility] - VET Assist Program RAILROAD COMMISSIONER attempted to provide her with information for [facility], but she declined due to her brother in law stating "[place] free[place] and traffic and he gets agitated with the noise'. RAILROAD COMMISSIONER encouraged to explore additional options that may be helpful in the event the current facility she is wanting is not financially feasible. RAILROAD COMMISSIONER will continue to be available as needed
[2021-08-10 12:50] VITALS: BP_SYST 137
[2021-08-10] MEDS: LORazepam 2 MG/ML VIAL IVP PRN (13:08)
--- NOTE | 2021-08-10 14:20 | NUR ---
Dietitian Recommendations * Consider [facility] diet Please refer to Nutrition Assessment for details. Addendum: 08/10/21 at [address] Amended: Links added.
[2021-08-10 16:56] VITALS: BP_SYST 134
--- NOTE | 2021-08-10 19:02 | NUR ---
CLOSING NOTES: PATIENT RESTING IN BED. CONFUSED. SITTER AT BEDSIDE. NO S/S OF ACUTE DISTRESS NOTED. FALL AND SAFETY MEASURES PROVIDED. CALL LIGHT WITHIN REACH.
[2021-08-10 20:00] VITALS: BP_SYST 132
[2021-08-10] MEDS: LATANOPROST 2.5 ML DROPS (XALATAN) BOTH EYES SCH (21:00)
[2021-08-10] MEDS: ATORVASTATIN 20 MG TABLET PO SCH (21:32)
[2021-08-10] MEDS: HALOPERIDOL LACTATE 5 MG/ML VIAL IM PRN (23:59)
[2021-08-11 00:25] VITALS: BP_SYST 111
[2021-08-11] MEDS: NORMAL SALINE 5 ML DISP.SYRIN IVF SCH ×3 (05:21→21:02)
--- NOTE | 2021-08-11 05:22 | NUR ---
I TRIED TO ATTEMPT TO RE-INSERT AN IV BUT PT WAS NOT COOPERATIVE, CONFUSED AND REFUSED
[2021-08-11] MEDS: CARVEDILOL 6.25 MG TABLET (COREG) PO SCH ×2 (09:00→21:00)
--- NOTE | 2021-08-11 09:05 | NUR ---
Real Estate Financial Analyst VANITA Ramsey contacted patient's spouse Gwen Bunn to obtain an update on her efforts to secure placement for patient. Mrs. Bunn. She shared she has contacted [facility] and one other facility, but according to her the costs would be about $8,000. She also shared she has not been able to meet with VA disability representative because she needed to utilize an office in [facility] and she went to one in [place]. VANITA provided her contact and address info for [facility] [place] [address] MIDWIFE [employer] BIRTH CENTER OWNER inquired into her ability and feelings of safety if she was to bring patient home, and if she can utilize family supports while she secures a placement. Mrs. Bunn expressed wanting to bring him home but according to her she didn't know this was an option as she had been told he was exhibiting aggressive behavior. She also shared she will now be exploring nighttime caregiver options as she shares this is when his behaviors escalate. Mrs. Bunn expressed that she is continuously working to secure support and/or placement as she understands he is ready for discharge. She shared that she is experiencing financial barriers due to the high cost of care. She explored utilizing patient's senior living funds, but according to her she was told she could only collect this when patient is . MIDWIFE AND BIRTH CENTER OWNER will continue to be available as needed Addendum: 08/11/21 at 1535 by Roxy WALDRON VANITA Ramsey attempted contact with [facility] to obtain information on their waiver program and if this includes dementia care. Left message requesting call back. Addendum: 08/12/21 at 0842 by Roxy WALDRON VANITA Ramsey made another attempt to contact Libia Carreon at [facility] to obtain info on elgiblity criteria for waiver program. Message was left requesting call back.
[2021-08-11 09:25] VITALS: BP_SYST 91
[2021-08-11] MEDS: QUEtiapine FUMARATE 25 MG TABLET PO SCH ×2 (09:29→21:00)
[2021-08-11] MEDS: amLODIPine BESYLATE 5 MG TABLET PO SCH (09:30)
[2021-08-11] MEDS: ASPIRIN 81 MG TABLET(ECOTRIN) PO SCH (09:30)
[2021-08-11] MEDS: TIMOLOL MALEATE 0.5% OPHTHALMIC DROPS 5 ML BOTH EYES SCH ×2 (09:31→21:01)
[2021-08-11] MEDS: BRIMONIDINE TARTRATE 0.2% 5 mL EYE DROPS BOTH EYES SCH ×3 (09:31→21:01)
[2021-08-11] MEDS: D5/0.45 NS 1,000 ML IV SCH ×3 (10:45→21:12)
[2021-08-11 10:46] LABS: ANION GAP 10 (5-15); CALCIUM 8.3 mg/dL (8.4-11.0); CHLORIDE 103 mmol/L (98-107); CREATININE 1.82 mg/dL (0.55-1.30); GLUCOSE 143 mg/dL (70-99); SODIUM SERUM 137 mmol/L (136-145); UREA NITROGEN, BLOOD 31 mg/dL (8-21)
[2021-08-11 12:09] VITALS: BP_SYST 102
[2021-08-11 16:00] VITALS: BP_SYST 148
[2021-08-11] MEDS: BETA-CAROTENE W-C & E/ZN/CU TABLET PO SCH (16:04)
[2021-08-11 20:00] VITALS: BP_SYST 105
[2021-08-11] MEDS: ATORVASTATIN 20 MG TABLET PO SCH (20:59)
[2021-08-11] MEDS: LATANOPROST 2.5 ML DROPS (XALATAN) BOTH EYES SCH (21:00)
--- NOTE | 2021-08-11 22:13 | NUR ---
PATIENT IN BED. NO ACUTE DISTRESS NOTED. REMAINS WITH A SITTER FOR SAFETY. WILL CONTINUE TO MONITOR.
[2021-08-12] VITALS: BP_SYST 95
[2021-08-12] MEDS: D5/0.45 NS 1,000 ML IV SCH ×2 (05:06→17:09)
[2021-08-12] MEDS: NORMAL SALINE 5 ML DISP.SYRIN IVF SCH ×3 (05:06→21:37)
--- NOTE | 2021-08-12 07:29 | NUR ---
OPENING NOTE Patient resting in bed with eyes closed. No sign of distress or pain. Nurse at bedside for direct observation. IV is intact and running prescribed fluids. All needs met at this time, will continue to monitor.
[2021-08-12 08:00] VITALS: BP_SYST 96
[2021-08-12] MEDS: QUEtiapine FUMARATE 25 MG TABLET PO SCH ×2 (08:38→21:36)
--- NOTE | 2021-08-12 08:38 | NUR ---
Deer Farmer NUISANCE WILDLIFE CONTROL OPERATOR Roxy received a message from [employer] Director Cardiovascular Meghan inquiring about patient's Gwen's progress on discharge plans. NUISANCE WILDLIFE CONTROL OPERATOR attempted to return call, voicemail left
[2021-08-12] MEDS: amLODIPine BESYLATE 5 MG TABLET PO SCH (08:39)
[2021-08-12] MEDS: ASPIRIN 81 MG TABLET(ECOTRIN) PO SCH (08:40)
[2021-08-12] MEDS: BRIMONIDINE TARTRATE 0.2% 5 mL EYE DROPS BOTH EYES SCH ×3 (08:40→21:38)
[2021-08-12] MEDS: TIMOLOL MALEATE 0.5% OPHTHALMIC DROPS 5 ML BOTH EYES SCH ×2 (08:40→21:39)
[2021-08-12] MEDS: CARVEDILOL 6.25 MG TABLET (COREG) PO SCH ×2 (08:42→21:36)
--- NOTE | 2021-08-12 10:02 | NUR ---
Manager Beauty VANITA Ramsey contacted patient's Gwen Bunn to obtain an update on progress towards patient's discharge plan. Mrs. Bunn shared she is continuing to work on locating a "home" for her that is within her budget and she has explored hiring a nurse/caregiver for night time care. She stated she feels safe bringing him home while she continues working on this, and will be able to pick him up later this afternoon. VANITA updated patient's nurse Gauri with Mrs. Bunn plan for discharge. VANITA will continue to be available as needed
[2021-08-12 12:00] VITALS: BP_SYST 100
--- NOTE | 2021-08-12 13:15 | NUR ---
ROUNDS Patient resting in bed, no sign of distress. Patient denies pain. Patient was able to get out of bed and ambulate once around the unit with assistance and observation. He is oriented to self and at times, time and place. For example, patient stated that he knew this upcoming Tuesday was mothers day. Patient has had an excellent appetite today and has been continent. All needs met at this time, and safety checks made. Will continue to monitor.
[2021-08-12 13:34] VITALS: BP_SYST 100
--- NOTE | 2021-08-12 14:08 | NUR ---
D/C EDGAR Holcomb, charge nurse, spoke with Dr Dejesus and asked if the patient could be discharged. , per [facility] Speeder Worker, states that is ready and able to receive patient at home. Dr Dejesus does not want to discharge patient until creatinine levels are lower.
--- NOTE | 2021-08-12 15:02 | NUR ---
Agricultural Engineering Technicians VANITA Roxy received an update from patient's nurse sharing patient would not be discharged this day. RN FACULTY attempted contact with patient's Gwen Bunn to inform her patient would not be discharged today. Voicemail was left providing update and requesting call back. VANITA Ramsey will continue to be available as needed
--- NOTE | 2021-08-12 15:34 | NUR ---
NEW IV PLACED IV on right forearm infiltrated. New 20g IV placed on left forearm. Old IV removed, no active bleeding. Prescribed fluids running.
[2021-08-12 16:00] VITALS: BP_SYST 142
[2021-08-12] MEDS: BETA-CAROTENE W-C & E/ZN/CU TABLET PO SCH (16:08)
--- NOTE | 2021-08-12 17:47 | NUR ---
ROUNDS Patient sitting up in bed eating dinner. He is alert and oriented to self. He has been asking to go home. Patient has been able to ambulate to the restroom with assistance. Complaining of constipation, paged for orders. Patient has made some attempts to get out of bed and wander, able to be redirected. All needs met at this time and safety checks made. Nurse at bedside for direct observation. Will continue to monitor.
--- NOTE | 2021-08-12 18:24 | NUR ---
CLOSING NOTE Patient in bed resting, no sign of distress or pain. Patient is alert but confused; oriented only to self at this time. IV is clean, dry, intact and patent with prescribed fluids running. Patient has been continent throughout shift and asks to get up to go to the restroom. Spoke to , Gwen, on the phone and updated her on the patient's status and plan of care. All needs met at this time and safety checks are made. Nurse at bedside for direct observation. Will endorse to associate financial analyst nurse.
--- NOTE | 2021-08-12 19:10 | NUR ---
OPENING NOTE PT IS SITTING UP IN BED. NO APPARENT DISTRESS NOTED AT THIS TIME. ASSISTED PT IN AMBULATING TO BATHROOM. BED IS IN LOWEST POSITION WITH FALL AND SAFETY PRECAUTIONS IN PLACE. SITTER PRESENT. CALL LIGHT IS WITH IN REACH. IV FLUIDS RUNNING ORDERED
[2021-08-12 20:00] VITALS: BP_SYST 159
--- NOTE | 2021-08-12 20:30 | NUR ---
WALKED WITH PT WALKED PT AROUND EAST AND WEST UNITS. PT TOLERATED WELL AND WAS HAPPY TO GET OUT OF BED
[2021-08-12] MEDS: ATORVASTATIN 20 MG TABLET PO SCH (21:35)
[2021-08-12] MEDS: LATANOPROST 2.5 ML DROPS (XALATAN) BOTH EYES SCH (21:38)
[2021-08-13 00:48] VITALS: BP_SYST 138
[2021-08-13] MEDS: D5/0.45 NS 1,000 ML IV SCH ×3 (03:38→22:45)
[2021-08-13] MEDS: NORMAL SALINE 5 ML DISP.SYRIN IVF SCH ×3 (03:40→22:11)
--- NOTE | 2021-08-13 05:50 | NUR ---
PT BECOMING AGITATED PT IS BECOMING MORE AGITATED SINCE 0500. NURSE IS REORIENTING PT, TRYING TO KEEP HIM CALM AND IN BED SITTER IS STILL PRESENT. IV FLUIDS RUNNING ORDERED
--- NOTE | 2021-08-13 07:00 | NUR ---
CLOSING NOTE PT IS LYING IN BED, JUST CHANGED BY NURSE. NO APPARENT DISTRESS NOTED AT THIS TIME. BED IS IN LOWEST POSITION WITH FALL AND SAFETY PRECAUTIONS IN PLACE. CALL LIGHT IS WITHIN REACH. SITTER PRESENT. IV FLUIDS RUNNING ORDERED
--- NOTE | 2021-08-13 07:40 | NUR ---
NOTES PATIENT ALERT AWAKE X 2-3. CONFUSED LIKE TO WANDER NO DIRECTION AT ALL. NEEDS TO GUIDE HIM TO THE BATHROOM. VITALS SIGNS STABLE. AFEBRILE. CALL LIGHTS WITHIN REACH. BED LOW POSITION, ALARMED AND LOCKED. WILL CONTINUE
[2021-08-13] MEDS: QUEtiapine FUMARATE 25 MG TABLET PO SCH ×2 (08:14→22:10)
[2021-08-13] MEDS: ASPIRIN 81 MG TABLET(ECOTRIN) PO SCH (08:14)
[2021-08-13] MEDS: amLODIPine BESYLATE 5 MG TABLET PO SCH (08:14)
[2021-08-13] MEDS: BRIMONIDINE TARTRATE 0.2% 5 mL EYE DROPS BOTH EYES SCH ×3 (08:15→22:10)
[2021-08-13] MEDS: TIMOLOL MALEATE 0.5% OPHTHALMIC DROPS 5 ML BOTH EYES SCH ×2 (08:15→22:11)
[2021-08-13] MEDS: CARVEDILOL 6.25 MG TABLET (COREG) PO SCH ×2 (08:20→22:10)
[2021-08-13] MEDS: BETA-CAROTENE W-C & E/ZN/CU TABLET PO SCH (09:00)
[2021-08-13 09:01] VITALS: BP_SYST 148
--- NOTE | 2021-08-13 09:14 | NUR ---
DUE MEDS GIVEN. ASSISTED TO THE BATHROOM. ABLE TO VOIDS WELL.
--- NOTE | 2021-08-13 11:15 | NUR ---
Speech And Hearing Clinic Director VANITA Ramsey contacted patient's Gwen to inform her that doctor has ordered discharge. She shared she will need some time to obtain family support to take patient out of car at home but she will be in later today. VANITA Ramsey informed patient's RN Karol that patient's was made aware of discharge. Addendum: 08/13/21 at 1240 by Roxy WALDRON Due to patient being placed back in restraints, VANITA was made aware he will not be discharged at this time. VANITA attempted contact with patient's , voicemail was left. BESSEMER CONVERTER OPERATOR will continue to be available as needed. Addendum: 08/13/21 at 1532 by Roxy WALDRON VANITA Ramsey spoke to patient's Gwen to provide her update on patient's condition and plan. BESSEMER CONVERTER OPERATOR again encouraged her to refer to resources provided to pursue support for care for patient. BESSEMER CONVERTER OPERATOR will continue to be available as needed.
[2021-08-13] MEDS: LORazepam 2 MG/ML VIAL IVP PRN ×2 (11:29→17:10)
--- NOTE | 2021-08-13 11:30 | NUR ---
DR LOWE CALLED AND PLACED BACK SOFT WRIST RESTRAINTS ON BOTH ARMS. TRYING TO HIT THE HOSPITAL STAFF AND BECOMES VERY VERY AGITATED.
[2021-08-13 11:38] VITALS: BP_SYST 158
--- NOTE | 2021-08-13 12:00 | NUR ---
CANCEL DISCHARGE FOR NOW.
[2021-08-13] MEDS: HALOPERIDOL LACTATE 5 MG/ML VIAL IM PRN ×2 (12:26→17:09)
--- NOTE | 2021-08-13 12:28 | NUR ---
HALDOL 2 MG IM GIVEN AT THIS TIME. VERY VERY AGITATED.
--- NOTE | 2021-08-13 12:38 | NUR ---
BENIGNO CONSULT SPOKE TO CHANDU BAEZ MADE AWARE THAT PATIENT NEEDS TO BE SEEN BY DR PARISI.
[2021-08-13 12:43] VITALS: BP_SYST 158
--- NOTE | 2021-08-13 13:30 | NUR ---
HUSSEIN AND HYGIENE CARE DONE.
--- NOTE | 2021-08-13 14:32 | NUR ---
STILL ON SOFT WRIST RESTRAINT. STILL RESTLESS KICKING HIS FEET.
[2021-08-13 15:53] VITALS: BP_SYST 150
--- NOTE | 2021-08-13 16:04 | NUR ---
STILL ON BILATERAL WRIST RESTRAINT NOTED. BIT SLEEPY BUT BUT TRYING HIS LEGS TO MOVED A LOT.
--- NOTE | 2021-08-13 18:47 | NUR ---
REFUSED TO EAT DINNER AT THIS TIME. HUSSEIN CARE DONE
[2021-08-13 20:00] VITALS: BP_SYST 134
--- NOTE | 2021-08-13 20:00 | NUR ---
opening note patient is currently in restraints sleeping in bed. restraints will be removed while he is sleeping and he will be monitored. No noted bruising or injury on bilateral wrist. bed is at lowest setting with side rails up and call light is within reach.
--- NOTE | 2021-08-13 21:30 | NUR ---
restraints patient woke up and was noticed to be pulling penis out from under the sheets and urinated on his bed and on the floor. He was noted to be pulling on his i.v. restraints were placed back on. Bedding was changed and he was repositioned. bed placed at lowest setting and side rails are up with call light within reach.
[2021-08-13] MEDS: ATORVASTATIN 20 MG TABLET PO SCH (22:10)
[2021-08-13] MEDS: LATANOPROST 2.5 ML DROPS (XALATAN) BOTH EYES SCH (22:11)
[2021-08-14 00:11] VITALS: BP_SYST 136
--- NOTE | 2021-08-14 00:20 | NUR ---
new I.V placed fluid draining from IV site. Restarted on upper left forearm . Successful after 3 attempts. Resumed current IVF of D3 NS 1/2 and regulated @ 100ml per hour. Will observe for any signs of infiltration.
--- NOTE | 2021-08-14 02:30 | NUR ---
RESTRAINTS: Physician order given to place wrist type restraints to prevent harm to self and others. Restraints placed with quick-release ties to bed frame. Will monitor patient frequently. Monitored the patient trying to remove lines. He did remove his sheets and gown. patient was monitored for any bruising or skin breakdown.
[2021-08-14] MEDS: NORMAL SALINE 5 ML DISP.SYRIN IVF SCH ×3 (05:48→20:30)
[2021-08-14 07:28] LABS: BASOPHILS # (AUTO) 0.1 K/uL (0.0-0.2); BASOPHILS % (AUTO) 0.6 % (0.0-2.0); EOSINOPHILS # (AUTO) 0.2 K/uL (0.0-0.4); EOSINOPHILS % (AUTO) 1.8 % (0.0-4.0); HEMATOCRIT 42.3 % (36-54); HEMOGLOBIN 14.2 g/dL (14.0-18.0); LYMPHOCYTES % (AUTO) 23.9 % (20.5-51.5); MEAN CORPUSCULAR HEMOGLOBIN 31 pg (27-31); MEAN CORPUSCULAR HGB CONC 34 % (32-36); MEAN CORPUSCULAR VOLUME 91 fL (79.0-98.0); MONOCYTES # (AUTO) 0.7 K/uL (0.0-1.0); MONOCYTES % (AUTO) 8.8 % (1.7-9.3); NEUTROPHILS # (AUTO) 5.5 K/uL (1.8-7.7); NEUTROPHILS % (AUTO) 64.9 % (40.0-70.0); PLATELET COUNT (AUTO) 185 K/uL (130-430); RED BLOOD CELL COUNT(AUTO) 4.63 MIL/uL (4.2-6.2); RED CELL DISTRIBUTION WIDTH 13.9 % (9.0-15.0); WHITE BLOOD COUNT (AUTO) 8.4 K/uL (4.8-10.8)
[2021-08-14 08:00] VITALS: BP_SYST 149
[2021-08-14 08:01] LABS: ALANINE AMINOTRANSFERASE 28 U/L (12-78); ALBUMIN 3.6 g/dL (3.4-4.8); ANION GAP 5 (5-15); ASPARTATE AMINOTRANSFERASE 26 U/L (10-37); CALCIUM 8.5 mg/dL (8.4-11.0); CHLORIDE 106 mmol/L (98-107); CREATININE 1.34 mg/dL (0.55-1.30); GLUCOSE 122 mg/dL (70-99); POTASSIUM 3.5 mmol/L (3.5-5.1); SODIUM SERUM 138 mmol/L (136-145); TOTAL BILIRUBIN 0.6 mg/dL (0.0-1.0); UREA NITROGEN, BLOOD 16 mg/dL (8-21)
[2021-08-14] MEDS: D5/0.45 NS 1,000 ML IV SCH ×2 (09:33→18:45)
[2021-08-14] MEDS: ASPIRIN 81 MG TABLET(ECOTRIN) PO SCH (09:56)
[2021-08-14] MEDS: BETA-CAROTENE W-C & E/ZN/CU TABLET PO SCH (09:56)
[2021-08-14] MEDS: BRIMONIDINE TARTRATE 0.2% 5 mL EYE DROPS BOTH EYES SCH ×3 (09:56→20:31)
[2021-08-14] MEDS: QUEtiapine FUMARATE 25 MG TABLET PO SCH ×2 (09:56→20:30)
[2021-08-14] MEDS: TIMOLOL MALEATE 0.5% OPHTHALMIC DROPS 5 ML BOTH EYES SCH ×2 (09:57→20:31)
--- NOTE | 2021-08-14 10:00 | NUR ---
Other Sports Official OPERATING ROOM AIDE Roxy met with patient's Gwen Bunn and patient's cousin Lisy Bardales regarding patient's discharge home. According to patient's family, they are continuing to struggle with locating supports for home care. OPERATING ROOM AIDE informed family that patient's care will require private pay due to not having medical necessity or requiring home health care or PT as they have asked. Patient's family also spoke with Dr. Dejesus during contact with this OPERATING ROOM AIDE. Patient's cousin also shared they have contacted [facility] regarding respite care and shared Dc from [facility] mentioned "something about a referral" but they were unable to provide additional information. OPERATING ROOM AIDE again encouraged patient's family to utilize familial support for caregiving while seeking care in a Dementia care facility. Addendum: 08/14/21 at 1207 by Roxy WALDRON VANITA Ramsey contacted [facility] . Scan [facility] Joey shared the following; - Respite care referral has been submitted and they will contact patient's - Respite care is a max of 40 hours per year, 10 visits a year delivered in 4 hour increments. - The patient will not qualify for home health due to not having a medical necessity - Provided resources for [facility] , [facility] Addendum: 08/14/21 at 1208 by Roxy Rodriguez MSW VANITA Ramsey contacted [facility] to obtain information about supports for patient's family. No answer and voicemail was full.
[2021-08-14] MEDS: CARVEDILOL 6.25 MG TABLET (COREG) PO SCH ×2 (10:16→20:29)
[2021-08-14] MEDS: amLODIPine BESYLATE 5 MG TABLET PO SCH (10:17)
[2021-08-14 12:00] VITALS: BP_SYST 135
--- NOTE | 2021-08-14 13:44 | NUR ---
Youth Care Professional VANITA Ramsey contacted patient's spouse Gwen to provide an update with the information obtained from [facility]. VANITA informed her patient would be safe to discharge today. Mrs. Bunn expressed her understanding and stated she had already left the facility but would return later. VANITA provided update to patient's RN Ethan FINE ARTIST will continue to be available as needed. Addendum: 08/14/21 at 1620 by Roxy WALDRON VANITA attempted contact with patient's Gwen to obtain an update on her arrival for patient's discharge. Voicemail left including number for nurses station.
[2021-08-14 16:00] VITALS: BP_SYST 147
[2021-08-14 17:23] VITALS: BP_SYST 148
--- NOTE | 2021-08-14 18:46 | NUR ---
1240 family visiting and discussing care for pt to bring home 4550 pt cleaned and prepared for discharge
[2021-08-14 19:20] VITALS: BP_SYST 137
--- NOTE | 2021-08-14 19:20 | NUR ---
PM ASSESSMENT; -Pt is a/ox3, resting in bed. No s/s any pain,sob,or any acute distress noted. IV site rt f/a patent,no s/s any infiltration noted. Endorsed by Nathaniel-SONDRA day shift that waiting for spouse to supervisor picking crew patient. Pt's condition stable. All safety measures in place. Fall precaution in place. Bed alarmed, closer to Nurses's station. Side rails x3. Call light w/in reach. Cont to monitor pt.
[2021-08-14] MEDS: ATORVASTATIN 20 MG TABLET PO SCH (20:29)
[2021-08-14] MEDS: LATANOPROST 2.5 ML DROPS (XALATAN) BOTH EYES SCH (20:31)
--- NOTE | 2021-08-14 20:44 | NUR ---
NOTES; CALLED SURYA CRAMER [phone] -called surya Cramer- at [phone] and left message regarding discharge home tonight. Now, waiting for callback.
--- NOTE | 2021-08-14 21:09 | NUR ---
NOTES; CALLED 2ND TIME SURYA CRAMER OCXF-[phone] -called arelis Cramerhel- at [phone] and left message
--- NOTE | 2021-08-14 21:20 | NUR ---
NOTES; MRS. BUNN,REED CALLED BACK AND WASN'T ABLE TO TAKE HIM HOME -Mrs. Bunn called back and she stated that she wasn't able to take care of him at home by herself and she wasn't able to find anyone to help her to take care of him this time. Will notify .
--- NOTE | 2021-08-14 21:26 | NUR ---
PAGED Yareli WILKS (ONCALL FOR DR. LOWE) REGARDING PT'S WAS UNABLE TO TAKE HIM HOME DUE TO NO ASSISTANCE AT HOME TO TAKE CARE OF PATIENT.
--- NOTE | 2021-08-14 22:17 | NUR ---
2nd PAGED Yareli WILKS (ONCALL FOR DR. LOWE) REGARDING PT'S WAS UNABLE TO TAKE HIM HOME DUE TO NO ASSISTANCE AT HOME TO TAKE CARE OF PATIENT.
--- NOTE | 2021-08-14 22:25 | NUR ---
ROUNDS; -pt is resting in bed. No s/s any pain,sob,or any acute distress noted. Pt's condition stable. All safety measures in place. Side rails x3,call light w/in reach. Bed alarmed. Cont to monitor pt.
--- NOTE | 2021-08-14 22:43 | NUR ---
NOTES; NOTIFIED Yareli WILKS (ONCALL FOR DR. LOWE) REGARDING PT'S WAS UNABLE TO TAKE HIM HOME DUE TO NO ASSISTANCE AT HOME TO TAKE CARE OF PATIENT. HOLD DISCHARGE HOME TONIGHT PER MD.
[2021-08-15] VITALS: BP_SYST 111
--- NOTE | 2021-08-15 | NUR ---
ROUNDS; -pt is asleep. No s/s any pain,sob,or any acute distress noted. VSS 98.0, 74, 20, 111/72, 98% r/a. Pt's condition stable. All safety measures in place. Side rails x3,call light w/in reach. Fall precaution in place. Bed alarmed. Cont to monitor pt.
[2021-08-15] MEDS: NORMAL SALINE 5 ML DISP.SYRIN IVF SCH ×2 (00:14→14:15)
--- NOTE | 2021-08-15 01:55 | NUR ---
ROUNDS; -Pt is asleep. No s/s any pain,sob,or any acute distress noted. Pt's condition stable. All safety measures in place. Side rails x3,call light w/in reach. Fall precaution in place. Bed alarmed. Cont to monitor pt.
[2021-08-15] MEDS: D5/0.45 NS 1,000 ML IV SCH (04:25)
--- NOTE | 2021-08-15 06:29 | NUR ---
CLOSING NOTES; -Pt is asleep. No s/s any pain,sob,or any acute distress noted. Pt's condition stable. IV site patent,no s/s any infiltration noted. IVF infusing well. All safety measures in place. Side rails x3,call light w/in reach. Fall precaution in place. Bed alarmed. Will endorse to oncoming nurse to cont care.
--- NOTE | 2021-08-15 08:00 | NUR ---
PT ASSESSED PLAN OF CARE REVIEWED SITTER IN PLACE FOR SAFETY VS WNL WILL CONTINUE TO MONITOR AND ASSESS
[2021-08-15 08:03] VITALS: BP_SYST 133
[2021-08-15] MEDS: ASPIRIN 81 MG TABLET(ECOTRIN) PO SCH (08:52)
[2021-08-15] MEDS: amLODIPine BESYLATE 5 MG TABLET PO SCH (08:52)
[2021-08-15] MEDS: CARVEDILOL 6.25 MG TABLET (COREG) PO SCH (08:53)
[2021-08-15] MEDS: BRIMONIDINE TARTRATE 0.2% 5 mL EYE DROPS BOTH EYES SCH (08:55)
[2021-08-15] MEDS: BETA-CAROTENE W-C & E/ZN/CU TABLET PO SCH (08:55)
[2021-08-15] MEDS: TIMOLOL MALEATE 0.5% OPHTHALMIC DROPS 5 ML BOTH EYES SCH (08:55)
[2021-08-15] MEDS: QUEtiapine FUMARATE 25 MG TABLET PO SCH (08:56)
[2021-08-15 11:24] VITALS: BP_SYST 131
--- NOTE | 2021-08-15 12:00 | NUR ---
PT WITH SITTER FOR SAFETY CALM FOLLOWS COMMANDS NO ACUTE DISTRESS NOTED WILL CONTINUE TO MONITOR AND ASSESS
--- NOTE | 2021-08-15 15:29 | NUR ---
Nutrition F/U Admitting Diagnosis Dementia Reviewed Pertinent Medical/Surgical Hx Medical Record Medical History Comment: Dementia, hyperlipidemia, HTN, glaucoma, DM SARS-CoV-2 Ag (Rapid) Negative 08/05 Subjective Information Pleasant patient was awake at time of visit, able to discuss nutrition history w/ this tag writer. The patient reports the meals he has received are good although the portions are, "too much food!" The patient appears to be missing some teeth although he reports he does not have difficulty chewing or swallowing, UBW ~154#/70 Kg. Current Diet Order/Nutrition Support Cardiac Patient/Significant Other Unable To Verbalize Education Provided Not Indicated Pertinent Medications D5 1/2NS at 50 ml/hr x10 hr (provides 204 kcals), Lipitor, Slo Niacin, MVI/minerals, ergocalciferol Pertinent Labs Cr 1.34 H, BG 122 Height (Feet) 5 feet Height (Inches) 5 inches Weight (Pounds) 157 pounds Weight (Calculated Kilograms) 71.398151 kilograms Patient Weight 71.214 kg Body Mass Index 26.12 kg/m2 %IBW 115 [place] [facility]/Adjusted Body Weight 136#/61.8 kg Weight Status Appropriate Last BM Aug 06, 2021 [facility]pt reports his prepares meals, low sodium, no added sugar Skin Integrity Comment: Ty score 17, no PIs noted Current % PO Fair (50-90%, ~55% on average) Estimated Energy Expenditure (kcals/day) 7726-8605 kcals/day (25-30 kcals/kg CBW for maintenance) Estimated Protein Required (g/day) 43-57 g/day (0.6-0.8 g/kg CBW d/t NEVA) Estimated Fluid Required (l/day) Per MD d/t NEVA Problem/Etiology/Signs/Symptoms Altered nutrition-related labs R/T renal dysfunction AEB abnormal BUN and Cr lab values. Expected Outcomes/Goals Monitor tolerance of oral diet w/ goal of pt meeting greater than 80% of estimated needs, labs trending WNL, normal GI function, skin integrity, wt maintenance. Dietitian Recommendations Consider [facility] diet Follow Up Low Risk: F/U in 7 days Follow Up By 08/22/2021
[2021-08-15 16:24] VITALS: BP_SYST 113
--- NOTE | 2021-08-15 16:27 | NUR ---
PT IN TO PICK PATIENT UP, PER FOOD SERVICE STEWARD PT HAS BEEN DISCHARGED SINCE YESTERDAY. DISCHARGE INSTRUCTIONS REVIEWED WITH AND VERBALIZES UNDERSTANDING. PT ADVISED TO CALL PCP ON TUESDAY TO MAKE A FOLLOW UP APPOINTMENT AND PT VERBALIZES UNDERSTANDING PT SIGNED DISCHARGE INSTRUCTION PT IV DISCONTINUED ORDERED PT ASSISTED TO PRIVATE CAR BY STAFF PT AND PT SISTER BOTH PRESENT AT CAR FOR PT DISCHARGE HOME
--- NOTE | 2021-08-15 17:06 | NUR ---
TELETYPE OR VARITYPE KEYBOARD OPERATOR AWARE OF PT DISCHARGE
--- NOTE | 2021-08-21 10:06 | NUR ---
Casino Slot Supervisor QUALITATIVE FIELD COORDINATOR made a Post Discharge Follow-Up Phone Call to former patient, Dany, but his Barbara answered stating Dany is doing good. Dany had a follow up apt. with Dr. Blood who added an additional med due to pt. frequently urinated up to 6 times from midnight to 6am. stated last night was the first night patient slept well only waking up once to urinate. Additionally blood work was normal at the PCP visit. This PCP apt was on 08/19.
== END 2021-08-15 16:57 | disposition home or self-care (01) | DRG 70 ==
LOC: SED 01:05 → SMU 05:08
PROVIDERS: ADMIT Internal Medicine Hospice and Palliative Medicine; ATTEND Internal Medicine Hospice and Palliative Medicine
DX: G93.41 Metabolic encephalopathy (principal); N17.0 Acute kidney failure with tubular necrosis; E87.1 Hypo-osmolality and hyponatremia; F03.91 Unspecified dementia, unspecified severity, with behavioral disturbance; I16.9 Hypertensive crisis, unspecified; I43 Cardiomyopathy in diseases classified elsewhere; E83.52 Hypercalcemia; E78.5 Hyperlipidemia, unspecified; H40.9 Unspecified glaucoma; E11.65 Type 2 diabetes mellitus with hyperglycemia; E83.41 Hypermagnesemia; I25.10 Atherosclerotic heart disease of native coronary artery without angina pectoris; Z20.822 Contact with and (suspected) exposure to COVID-19; I35.8 Other nonrheumatic aortic valve disorders; I11.9 Hypertensive heart disease without heart failure; H54.8 Legal blindness, as defined in USA; Z78.1 Physical restraint status; Z79.899 Other long term (current) drug therapy; Z87.440 Personal history of urinary (tract) infections; Z79.82 Long term (current) use of aspirin
CPT/HCPCS: 36415; 70450-TC; 73502; 76376; 76770; 80048; 80053; 81000; 82570; 83735; 84100; 84302; 85025; 93306; 99285; J1630; J2060; Q0163

== ENCOUNTER 2022-01-30 12:10 | Inpatient (IN) | payer OTHER ==
[~2022-01-30] VITALS: Ht 170.2 cm; Wt 60.8 kg
[2022-01-30 12:10] VITALS: BP_SYST 142
[~2022-01-30 12:10] MED LIST changes: -ENAL5TAB77 PO
--- NOTE | 2022-01-30 12:19 | NUR ---
DR PRAJAPATI IN ROOM FOR EXAM
--- NOTE | 2022-01-30 12:36 | NUR ---
Patient is brought in by ambulance chief complaint of syncopal episode at home patient states that his left leg gave out he fell does not member the details he denies physical injuries his apparently saw this and call 911. Pt aaox4, in nad. Denies any pain at thsi time. Resp even and unlabored, on ra@98%. Sfatey precautions in place. will cont to monitor closely.
[2022-01-30 12:50] LABS: BASOPHILS % (AUTO) 0.4 % (0.0-2.0); EOSINOPHILS # (AUTO) 0.1 K/uL (0.0-0.4); EOSINOPHILS % (AUTO) 0.8 % (0.0-4.0); HEMATOCRIT 38.2 % (36-54); HEMOGLOBIN 13.4 g/dL (14.0-18.0); LYMPHOCYTES # (AUTO) 1.3 K/uL (1.0-5.5); LYMPHOCYTES % (AUTO) 15.4 % (20.5-51.5); MEAN CORPUSCULAR HEMOGLOBIN 33 pg (27-31); MEAN CORPUSCULAR HGB CONC 35 % (32-36); MEAN CORPUSCULAR VOLUME 92 fL (79.0-98.0); MONOCYTES # (AUTO) 0.6 K/uL (0.0-1.0); MONOCYTES % (AUTO) 6.7 % (1.7-9.3); NEUTROPHILS # (AUTO) 6.4 K/uL (1.8-7.7); NEUTROPHILS % (AUTO) 76.7 % (40.0-70.0); PLATELET COUNT (AUTO) 162 K/uL (130-430); RED BLOOD CELL COUNT(AUTO) 4.14 MIL/uL (4.2-6.2); RED CELL DISTRIBUTION WIDTH 14.7 % (9.0-15.0); WHITE BLOOD COUNT (AUTO) 8.4 K/uL (4.8-10.8)
[2022-01-30 13:17] LABS: ANION GAP 5 (5-15); CALCIUM 8.2 mg/dL (8.4-11.0); CHLORIDE 106 mmol/L (98-107); CREATININE 1.53 mg/dL (0.55-1.30); GLUCOSE 131 mg/dL (70-99); UREA NITROGEN, BLOOD 20 mg/dL (8-21)
[2022-01-30 13:22] LABS: ALANINE AMINOTRANSFERASE 32 U/L (12-78); ASPARTATE AMINOTRANSFERASE 15 U/L (10-37); TOTAL BILIRUBIN 0.6 mg/dL (0.0-1.0)
--- NOTE | 2022-01-30 13:39 | NUR ---
PT HYPERTENSIVE AT 192/98, HR-73. DR PRAJAPATI INFORMED. PT DENIES ANY PAIN AT THIS TIME. RESP EVEN AND UNLABORED, ON RA @94%.
--- NOTE | 2022-01-30 15:38 | NUR ---
Urine sent to the lab
--- NOTE | 2022-01-30 15:59 | NUR ---
WAITING FOR CTA, CHECKLIST COMPLETED.
[2022-01-30] MEDS ORDERED: iohexoL 350 mgI/mL, 100 ML INFUS..BTL IV ONE (16:16)
[2022-01-30] MEDS ORDERED: ESCI10TA PO (17:12)
[2022-01-30] MEDS ORDERED: RISP0.5T5 PO (17:12)
[2022-01-30] MEDS ORDERED: TAMS-11 PO (17:12)
--- NOTE | 2022-01-30 17:42 | NUR ---
Admit bed requested Patient will be admitted to care of . Admitted to TELEMETRY unit. Diagnosis SYNCOPE Inpatient (Yes or No) YES Observation (Yes or No) NO Orientation concerns or request close to nursing station (Yes or No) NO Covid Status PENDING On vent or bipap NO Isolation requirements NO Needs a sitter NO From Home (Yes or if No enter name of facility) HOME Requires Dialysis (Yes or No) NO Med Rec Completed (Yes of No) YES
--- NOTE | 2022-01-30 19:17 | NUR ---
PT RESTING QUIETLY IN GURNEY WITH EYES CLOSED, RESP. EVEN AND UNLABORED, EQUAL CHEST RISE AND FALL.
--- NOTE | 2022-01-30 19:35 | NUR ---
Admitted to [TELE] unit. Will go to room . Belongings list completed. Complete and up to date summary report printed. SBAR report to be given at bedside with opportunity for questions.
--- NOTE | 2022-01-30 19:35 | NUR ---
PT TRANSFERRED TO 132C ON CARDIAC MONTIOR WITH BEDSIDE REPORT TO RN PRESENT. PT ABLE TO STAND AND TRANSFER TO [facility] WITH 2 PERSON ASSIST.
--- NOTE | 2022-01-30 19:40 | NUR ---
ADMISSION NOTE Received patient from ER via gurney. Patient admitted with diagnosis of SYNCOPE. Patient is awake, alert, oriented X 2. Patient oriented to hospital room, call light, toileting, pain management and safety-teach back done. Patient informed that their room number is 132A Personal belongings checked and Belongings List documented. Call light within reach.
[2022-01-30 20:30] VITALS: BP_SYST 134
[2022-01-30] MEDS ORDERED: ACETAMINOPHEN 325 MG TABLET PO PRN (21:30)
[2022-01-30] MEDS ORDERED: ALBUTEROL SULFATE 0.083% 2.5 MG/3 ML VIAL.NEB INH PRN (21:30)
[2022-01-30 21:35] VITALS: BP_SYST 134
[2022-01-30] MEDS ORDERED: PEG 400/HYPROMELLOSE/GLYCERIN 15 ML DROPS OP PRN (21:45)
[2022-01-30] MEDS ORDERED: LABETALOL 100 MG/ 20ML VIAL IVP PRN (22:00)
--- NOTE | 2022-01-30 22:00 | NUR ---
PATIENT IS VERY AGITATED WHEN AWAKEN TO BE CLEANED. PATIENT IS TRYING TO GET OUT OF BED AND REMOVED ALL THE LEADS. HIGH RISK FOR FALL. BED ALARM IS ON. NOTIFIED DR. TOBIAS, ORDERED TO APPLY BILATERAL WRIST RESTRAINTS AND GIVE ATIVAN 1 MG IV PRN FOR AGITATION.
[2022-01-30] MEDS: LORazepam 2 MG/ML VIAL IM PRN (22:50)
[2022-01-30 23:18] VITALS: BP_SYST 134
[2022-01-31 00:20] VITALS: BP_SYST 141
--- NOTE | 2022-01-31 00:30 | NUR ---
NURSE TRANSFER OF CARE I have assumed care of patient, receiving report from prior RN Katharina at 0020. I was updated on pt's combative behavior and need for restraints. BRAEDEN Gonzalez will assist in pt's care and just notified me that pt managed to remove clothing and is laying in bed naked. Restraints are on; loose yet secured, pt wrist do not indicate injury. Medications have been administered, no other medications are schedued
--- NOTE | 2022-01-31 05:05 | NUR ---
CONSULTATION PAGED/CALLED Reason for Consultation: REPETITIVE SYNCOPAL EPISODES Person Who was Notified:KRISTIAN Consulting Physician: DR ROSADO, DOCTOR EDEL COVERING Manager Brand Specialty: Ordering Physician: MICHELINE
--- NOTE | 2022-01-31 05:18 | NUR ---
CONSULTATION PAGED/CALLED Reason for Consultation: SYNCOPE Person Who was Notified: DR Galindo BOWERS Consulting Physician: Galindo BOWERS Analytical Lab Analyst Specialty: Ordering Physician: JOJO
[2022-01-31 07:01] LABS: BASOPHILS % (AUTO) 0.3 % (0.0-2.0); EOSINOPHILS # (AUTO) 0.1 K/uL (0.0-0.4); EOSINOPHILS % (AUTO) 1.1 % (0.0-4.0); HEMATOCRIT 40.9 % (36-54); HEMOGLOBIN 14.5 g/dL (14.0-18.0); LYMPHOCYTES % (AUTO) 21.8 % (20.5-51.5); MEAN CORPUSCULAR HEMOGLOBIN 32 pg (27-31); MEAN CORPUSCULAR HGB CONC 35 % (32-36); MEAN CORPUSCULAR VOLUME 91 fL (79.0-98.0); MONOCYTES # (AUTO) 0.7 K/uL (0.0-1.0); NEUTROPHILS # (AUTO) 6.3 K/uL (1.8-7.7); NEUTROPHILS % (AUTO) 68.8 % (40.0-70.0); PLATELET COUNT (AUTO) 165 K/uL (130-430); RED BLOOD CELL COUNT(AUTO) 4.48 MIL/uL (4.2-6.2); RED CELL DISTRIBUTION WIDTH 14.3 % (9.0-15.0); WHITE BLOOD COUNT (AUTO) 9.2 K/uL (4.8-10.8)
[2022-01-31 07:31] LABS: ALANINE AMINOTRANSFERASE 26 U/L (12-78); ALBUMIN 3.5 g/dL (3.4-4.8); ANION GAP 9 (5-15); ASPARTATE AMINOTRANSFERASE 18 U/L (10-37); CALCIUM 8.5 mg/dL (8.4-11.0); CHLORIDE 106 mmol/L (98-107); CREATININE 1.16 mg/dL (0.55-1.30); GLUCOSE 91 mg/dL (70-99); TOTAL BILIRUBIN 0.6 mg/dL (0.0-1.0); UREA NITROGEN, BLOOD 18 mg/dL (8-21)
--- NOTE | 2022-01-31 07:45 | NUR ---
OPENING NOTE Patient resting in bed,No pain, No sob, no distress. Patient has bilateral wrist restraints. Patient has IV to L wrist and L upper arm on SL. Patient A/O x 1, romanian speaking and refusing to eat breakfast at this time. All needs met at this time. Bed is locked and in lowest position, will continue to monitor.
[2022-01-31 08:00] VITALS: BP_SYST 168
[2022-01-31] MEDS: BRIMONIDINE TARTRATE 0.2% 5 mL EYE DROPS OP SCH ×2 (08:40→21:43)
[2022-01-31] MEDS: TAMSULOSIN HCL 0.4 MG CAP PO SCH ×2 (08:40→08:45)
[2022-01-31] MEDS: ASPIRIN 81 MG TAB.CHEW PO SCH ×2 (08:40→08:45)
[2022-01-31] MEDS: ENOXAPARIN SODIUM 40 MG/0.4 ML SYRINGE SUBCUT SCH (08:40)
[2022-01-31] MEDS: ATORVASTATIN 20 MG TABLET PO SCH ×2 (08:40→08:45)
[2022-01-31] MEDS: TIMOLOL MALEATE 0.5% OPHTHALMIC DROPS 5 ML OP SCH ×2 (08:41→21:42)
[2022-01-31] MEDS: LORazepam 2 MG/ML VIAL IM PRN ×2 (09:09→17:11)
[2022-01-31] MEDS: D5/0.45 NS 1,000 ML IV SCH (09:15)
[2022-01-31 11:55] VITALS: BP_SYST 159
--- NOTE | 2022-01-31 12:05 | NUR ---
Patient Rounds Patient resting in bed,No pain, No sob, no distress. Patient has bilateral wrist restraints. Patient has IV to L wrist on infusion pump. All needs met at this time. Bed is locked and in lowest position, will continue to monitor.
[2022-01-31 15:05] VITALS: BP_SYST 159
--- NOTE | 2022-01-31 18:43 | NUR ---
CLOSING NOTE Patient resting in bed,No pain, No sob, no distress. Patient has bilateral wrist restraints. Patient has IV to L wrist on infusion pump. Patient A/O x 1, Latvian speaking. All needs met at this time. Bed is locked and in lowest position, will endorse to nightshift nurse.
--- NOTE | 2022-01-31 19:00 | NUR ---
Received pt in bed.AOX1.On RA.Afib on monitor.Not in respiratory distress noted.Bilateral wrist restraint noted. Bed alarm on.Bed in lowest position.All needs are met at this time.
--- NOTE | 2022-01-31 20:00 | NUR ---
Offered food and water but pt refused.
[2022-01-31 20:33] VITALS: BP_SYST 129
--- NOTE | 2022-02-01 | NUR ---
Kept pt clean and dry.Clean pt and changed gown.
[2022-02-01 00:40] VITALS: BP_SYST 171
[2022-02-01] MEDS: D5/0.45 NS 1,000 ML IV SCH ×2 (00:41→20:05)
[2022-02-01] MEDS: LORazepam 2 MG/ML VIAL IM PRN (04:34)
--- NOTE | 2022-02-01 07:16 | NUR ---
ENDORSED TO AM RN FOR CONTINUITY OF CARE.PT NOT IN RESPIRATORY DISTRESS NOTED.
[2022-02-01 07:34] LABS: ANION GAP 11 (5-15); CALCIUM 8.4 mg/dL (8.4-11.0); CHLORIDE 106 mmol/L (98-107); CREATININE 1.22 mg/dL (0.55-1.30); GLUCOSE 89 mg/dL (70-99); UREA NITROGEN, BLOOD 19 mg/dL (8-21)
[2022-02-01 07:42] LABS: BASOPHILS # (AUTO) 0.1 K/uL (0.0-0.2); BASOPHILS % (AUTO) 0.6 % (0.0-2.0); EOSINOPHILS # (AUTO) 0.1 K/uL (0.0-0.4); HEMATOCRIT 38.4 % (36-54); HEMOGLOBIN 13.4 g/dL (14.0-18.0); LYMPHOCYTES # (AUTO) 1.6 K/uL (1.0-5.5); LYMPHOCYTES % (AUTO) 17.6 % (20.5-51.5); MEAN CORPUSCULAR HEMOGLOBIN 32 pg (27-31); MEAN CORPUSCULAR HGB CONC 35 % (32-36); MEAN CORPUSCULAR VOLUME 92 fL (79.0-98.0); MONOCYTES # (AUTO) 0.8 K/uL (0.0-1.0); MONOCYTES % (AUTO) 8.4 % (1.7-9.3); NEUTROPHILS # (AUTO) 6.7 K/uL (1.8-7.7); NEUTROPHILS % (AUTO) 72.4 % (40.0-70.0); PLATELET COUNT (AUTO) 175 K/uL (130-430); RED BLOOD CELL COUNT(AUTO) 4.17 MIL/uL (4.2-6.2); RED CELL DISTRIBUTION WIDTH 14.3 % (9.0-15.0); WHITE BLOOD COUNT (AUTO) 9.3 K/uL (4.8-10.8)
[2022-02-01] MEDS: TAMSULOSIN HCL 0.4 MG CAP PO SCH (08:46)
[2022-02-01] MEDS: ATORVASTATIN 20 MG TABLET PO SCH (08:47)
[2022-02-01] MEDS: ASPIRIN 81 MG TAB.CHEW PO SCH (08:47)
[2022-02-01] MEDS: ENOXAPARIN SODIUM 40 MG/0.4 ML SYRINGE SUBCUT SCH (08:47)
[2022-02-01] MEDS: BRIMONIDINE TARTRATE 0.2% 5 mL EYE DROPS OP SCH ×2 (08:49→20:07)
[2022-02-01] MEDS: TIMOLOL MALEATE 0.5% OPHTHALMIC DROPS 5 ML OP SCH ×2 (08:49→20:07)
--- NOTE | 2022-02-01 09:00 | NUR ---
ASSISTANT BRANCH MANAGER ACSW Roxy received call from patient's Gwen. She was expressing concern with patient's care and inquiring into discharge plan. ACSW informed her that at this time there were no discharge plans and medical staff was continuing efforts to complete necessary tests/procedures at this time. She also inquired into "can they send him a hospital bed". ACSW provided a brief explanation of physician orders, insurance authorization, and medical need. ACSW also provided number for [employer] to support with obtaining hospital bed. ACSW encouraged Mrs. Bunn to contact assigned RN and ask to have update provided by physician. ACSW will continue to be available as needed
--- NOTE | 2022-02-01 10:57 | NUR ---
INFORMED REGISTRY NURSE SUGAR THAT THE PATIENT HAS BEEN OFF THE TELE MONITOR SINCE 1016
[2022-02-01 11:55] VITALS: BP_SYST 122
[2022-02-01] MEDS ORDERED: LORazepam 2 MG/ML VIAL IVP ONE (14:00)
[2022-02-01 16:57] VITALS: BP_SYST 151
--- NOTE | 2022-02-01 19:00 | NUR ---
0800: AROUSABLE TO PAIN, OPEN EYES OCCASIONALLY. DOES NOT FOLLOW COMMAND, WILL CONTINUE TO REASSESS PATIENT. 1200: UNABLE TO PERFORM MRI OF THE HEAD ORDERED. DR. Andre URIBE MADE AWARE WITH NEW ORDER FOR 1 ADDITIONAL DOSE OF ATIVAN IV PUSH. WILL ADMINISTER MED ORDERED AND WILL REASSESS FOR EFFECTIVENESS. 1400: ATIVAN EFFECTIVE, PATIENT IS CALM AND ASLEEP. ABLE TO PERFORM MRI ORDERED. 1500: BACK FROM MRI STILL ASLEEP. WILL CONTINUE TO REASSESS PATIENT PRN. 1900: PATIENT IS STILL DROWSY BUT AROUSABLE W/O ANY S/S OF ANY ACUTE DISTRESS NOTED. ENDORSED PATIENT TO PM SHIFT NURSE.
--- NOTE | 2022-02-01 19:30 | NUR ---
Received report from day shift RN. Patient's sleeping but easily wake up to his name. On bilateral soft wrist restrain not to pull iv and library monitor.
[2022-02-01 20:00] VITALS: BP_SYST 169
--- NOTE | 2022-02-01 20:47 | NUR ---
Dietitian Recommendations * Recommend Regular diet d/t negligible PO and labs trending WNL * Glucerna TID (provides 660 kcals and 30g protein) * Recommend daily MVI * Encourage good PO intake * Consider alternate means of nutrition if patient refuses meals >3 days Please refer to nutrition assessment for details, thanks! CC, MPH, RDN
--- NOTE | 2022-02-01 23:00 | NUR ---
Called Dr URIBE and renewed restrain order.
[2022-02-02] VITALS (7 sets, daily range): BP systolic 123–189
[2022-02-02] MEDS: D5/0.45 NS 1,000 ML IV SCH ×2 (00:40→15:00)
[2022-02-02] MEDS ORDERED: LABETALOL 100 MG/ 20ML VIAL ONE (00:41)
[2022-02-02] MEDS: LABETALOL HCL 20 MG/4 ML CARTRIDGE IVP PRN ×2 (00:43→20:38)
--- NOTE | 2022-02-02 06:17 | NUR ---
Pt confused and restless. Kept bilateral soft wrist restrain. Bp was high- sbp>160's. Given Labetarol 5 mg ivp x 1 and controlled bp. Incontinent of urine. kept clean and dry. Skin dry and intact. Tele- NSR w/o ectopy. IVF D51/2NS @ 75 ml/hr.
--- NOTE | 2022-02-02 07:25 | NUR ---
receive the patient form the night rn in stable . with admitting diagnosis of syncopal episode , cardiac related . no complain of pain at this time . no sign and symptoms of respiratory distress . will continue to monitor
--- NOTE | 2022-02-02 09:30 | NUR ---
called . made update . told md knapp that wants to talk to him regarding the results of the MRI of the brain yesterday
[2022-02-02] MEDS: TAMSULOSIN HCL 0.4 MG CAP PO SCH (10:07)
[2022-02-02] MEDS: ATORVASTATIN 20 MG TABLET PO SCH (10:07)
[2022-02-02] MEDS: ASPIRIN 81 MG TAB.CHEW PO SCH (10:07)
[2022-02-02] MEDS: TIMOLOL MALEATE 0.5% OPHTHALMIC DROPS 5 ML OP SCH ×2 (10:08→20:38)
[2022-02-02] MEDS: ENOXAPARIN SODIUM 40 MG/0.4 ML SYRINGE SUBCUT SCH (10:08)
[2022-02-02] MEDS: BRIMONIDINE TARTRATE 0.2% 5 mL EYE DROPS OP SCH ×2 (10:09→20:37)
--- NOTE | 2022-02-02 14:20 | NUR ---
the patient is still on restraints . still on monitoring q2 hrs. shoed some episode of agitation , ativan 1 mg was given by the rn , will continue to monitor .
--- NOTE | 2022-02-02 14:40 | NUR ---
CONSULT NEUROLOGY CONFUSION BRIE CHILD SENT TEXT MESSAGE TO DR ROSADO
[2022-02-02] MEDS: LORazepam 2 MG/ML VIAL IV PRN (15:05)
--- NOTE | 2022-02-02 19:25 | NUR ---
will endorse to night rn for continuity of care .
--- NOTE | 2022-02-02 19:30 | NUR ---
OPENING NOTE REPORT RECEIVED FROM DAYSHIFT NURSE. PATIENT RECEIVED LYING IN BED, EYES CLOSED, APPEARS TO BE ASLEEP, NO S/S OF ACUTE DISTRESS. BREATHING IS EVEN AND UNLABORED. HOB RAISED. IVF INFUSING WELL, IV SITE PATENT, NO SIGNS OF INFILTRATION OR INFECTION NOTED. BILATERAL SOFT WRIST RESTRAINTS IN PLACE, NO SIGNS OF INJURIES NOTED. BED ALARM ON. BED IS LOCKED AND AT LOWEST POSITION. WILL CONTINUE TO MONITOR.
--- NOTE | 2022-02-02 20:30 | NUR ---
HIGH BP PRN MEDICATION GIVEN FOR ELEVATED BP AT THIS TIME. WILL MONITOR AND REASSESS.
--- NOTE | 2022-02-02 23:20 | NUR ---
ROUNDS PATIENT IN BED, RESTING. ALL NEEDS MET. WILL CONTINUE TO MONITOR.
[2022-02-03] VITALS (7 sets, daily range): BP systolic 141–176
[2022-02-03] MEDS: LORazepam 2 MG/ML VIAL IV PRN ×3 (00:23→22:19)
--- NOTE | 2022-02-03 02:33 | NUR ---
ELEVATED BP PRN MEDICATION TO BE GIVEN FOR SBP >160. WILL MONITOR AND REASSESS.
[2022-02-03] MEDS: LABETALOL HCL 20 MG/4 ML CARTRIDGE IVP PRN ×2 (02:35→23:54)
--- NOTE | 2022-02-03 03:30 | NUR ---
INCONTINENT CARE PATIENT CLEANED BY RN AND BUS TROLLEY AND TAXI INSTRUCTOR. PATIENT TOLERATED WELL. ALL NEEDS MET AT THIS TIME. WILL CONTINUE TO MONITOR.
[2022-02-03] MEDS: D5/0.45 NS 1,000 ML IV SCH ×2 (03:32→18:14)
--- NOTE | 2022-02-03 06:33 | NUR ---
CLOSING NOTE PATIENT IN BED, RESTING. NO S/S OF ACUTE DISTRESS. BREATHING EVEN AND UNLABORED. HOB RAISED. IVF INFUSING WELL, IV SITES PATENT, NO SIGNS OF INFILTRATION OR INFECTION NOTED. BILATERAL SOFT WRIST RESTRAINTS IN PLACE, NO SIGNS OF INJURIES NOTED. ALL NEEDS MET THROUGHOUT SHIFT. FALL, SAFETY PRECAUTIONS MAINTAINED THROUGHOUT SHIFT. WILL CONTINUE TO MONITOR UNTIL PATIENT CARE IS ENDORSED TO ONCOMING DAYSHIFT NURSE.
--- NOTE | 2022-02-03 07:07 | NUR ---
receive the patient from the night rn in a stable condition with admitting diagnosis of syncopal episode .no sign and symptoms of respiratory distress . no complain of pain at this time will continue to monitor . still on bilateral soft wrist restraints . will monitor every 2 hours
[2022-02-03] MEDS: ASPIRIN 81 MG TAB.CHEW PO SCH (08:49)
[2022-02-03] MEDS: TAMSULOSIN HCL 0.4 MG CAP PO SCH (08:49)
[2022-02-03] MEDS: ENOXAPARIN SODIUM 40 MG/0.4 ML SYRINGE SUBCUT SCH (08:50)
[2022-02-03] MEDS: ATORVASTATIN 20 MG TABLET PO SCH (08:50)
[2022-02-03] MEDS: TIMOLOL MALEATE 0.5% OPHTHALMIC DROPS 5 ML OP SCH ×2 (08:51→20:13)
[2022-02-03] MEDS: BRIMONIDINE TARTRATE 0.2% 5 mL EYE DROPS OP SCH ×2 (08:51→20:14)
--- NOTE | 2022-02-03 18:09 | NUR ---
patient showed signs of anxiety . ativan was given . will continue to monitor
--- NOTE | 2022-02-03 19:06 | NUR ---
will endorse to slot shift supervisor rn for continuity of care
--- NOTE | 2022-02-03 19:15 | NUR ---
OPENING NOTE REPORT RECEIVED FROM DAYSHIFT NURSE. PATIENT RECEIVED LYING IN BED, RESTING. NO S/S OF ACUTE DISTRESS. BREATHING EVEN AND UNLABORED. IVF INFUSING WELL, IV SITE PATENT, NO SIGNS OF INFILTRATION OR INFECTION NOTED. BILATERAL SOFT WRIST RESTRAINTS IN PLACE. BED ALARM ON. BED IS LOCKED AND AT LOWEST POSITION. WILL CONTINUE TO MONITOR.
--- NOTE | 2022-02-03 23:00 | NUR ---
NEW IV/ROUNDS PREVIOUS IV SITE INFILTRATED, REMOVED AT THIS TIME, CATHETER FULLY INTACT. NEW IV INSERTED LEFT FOREARM, PATIENT TOLERATED WELL. WILL MONITOR.
--- NOTE | 2022-02-04 | NUR ---
ELEVATED BP PRN MEDICATION GIVEN. WILL MONITOR AND REASSESS.
[2022-02-04 00:39] VITALS: BP_SYST 171
[2022-02-04 00:57] VITALS: BP_SYST 144
[2022-02-04] MEDS: D5/0.45 NS 1,000 ML IV SCH ×2 (06:15→18:30)
--- NOTE | 2022-02-04 06:35 | NUR ---
CLOSING NOTE PATIENT IN BED, RESTING. NO S/S OF ACUTE DISTRESS. BREATHING EVEN AND UNLABORED. HOB RAISED. IVF INFUSING WELL, IV SITE PATENT, NO SIGNS OF INFILTRATION OR INFECTION NOTED. BILATERAL SOFT WRIST RESTRAINTS IN PLACE. NO SIGNS OF INJURIES NOTED. ALL NEEDS MET THROUGHOUT SHIFT. FALL, SAFETY PRECAUTIONS MAINTAINED THROUGHOUT SHIFT. WILL CONTINUE TO MONITOR UNTIL PATIENT CARE IS ENDORSED TO ONCOMING DAYSHIFT NURSE.
--- NOTE | 2022-02-04 07:00 | NUR ---
receive the patient from the mini shifter in a stable condition with admitting diagnosis syncopal episode axo1 with episode of confusion no sign and symptom of respiratory distress . no complain of pain . will continue to monitor
[2022-02-04] MEDS: TIMOLOL MALEATE 0.5% OPHTHALMIC DROPS 5 ML OP SCH ×2 (09:15→21:54)
[2022-02-04] MEDS: BRIMONIDINE TARTRATE 0.2% 5 mL EYE DROPS OP SCH ×2 (09:15→21:55)
[2022-02-04] MEDS: ASPIRIN 81 MG TAB.CHEW PO SCH (09:16)
[2022-02-04] MEDS: ATORVASTATIN 20 MG TABLET PO SCH (09:16)
[2022-02-04] MEDS: TAMSULOSIN HCL 0.4 MG CAP PO SCH (09:16)
[2022-02-04] MEDS: ENOXAPARIN SODIUM 40 MG/0.4 ML SYRINGE SUBCUT SCH (09:16)
[2022-02-04 11:23] VITALS: BP_SYST 128
--- NOTE | 2022-02-04 12:54 | NUR ---
CONSULTATION PAGED REASON FOR CONSULTATION:CONFUSION WAS CONSULT CALLED?Y PERSON WHO WAS NOTIFIED:SANDRA CONSULTING PHYSICIAN:FAHAD NOLASCO FLORICULTURE TEACHER SPECIALTY:PSYCHE FLORICULTURE TEACHER PHONE NUMBER:[phone] REQUESTING PHYSICIAN:LUISA MOLINA
--- NOTE | 2022-02-04 13:45 | NUR ---
the rn tried to remove the patient from bilateral soft wrist restraints . the patinet was combative , pulling all his lines , and getting off the the bed . safety precaution is at risk . still maintained on bilateral wrist restraints for safety . will continue to monitor every 2 hours
--- NOTE | 2022-02-04 15:10 | NUR ---
md garcia , neurology consult .called . inquired about the patient mental status, history , medication . md said he study his present medications and will make his recommendations and revision
[2022-02-04 16:15] VITALS: BP_SYST 145
[2022-02-04] MEDS ORDERED: TAMSULOSIN HCL 0.4 MG CAP PO SCH (16:30)
[2022-02-04] MEDS ORDERED: ASPIRIN 81 MG TABLET(ECOTRIN) PO ONE (16:30)
[2022-02-04] MEDS ORDERED: PHENAZOPYRIDINE HCL 100 MG TABLET PO ONE (16:30)
[2022-02-04] MEDS ORDERED: CITALOPRAM HYDROBROMIDE 20 MG TABLET PO SCH (16:30)
--- NOTE | 2022-02-04 18:00 | NUR ---
place a new iv on the patient
--- NOTE | 2022-02-04 18:10 | NUR ---
will endorse to night rn for continuity of care
[2022-02-04] MEDS ORDERED: CITALOPRAM HYDROBROMIDE 20 MG TABLET PO ONE (19:00)
[2022-02-04 19:45] VITALS: BP_SYST 123
[2022-02-04] MEDS ORDERED: BRIMONIDINE TARTRATE 0.2% 5 mL EYE DROPS OP SCH (21:00)
[2022-02-04] MEDS ORDERED: TIMOLOL MALEATE 0.5% OPHTHALMIC DROPS 5 ML OP SCH (21:00)
[2022-02-04] MEDS ORDERED: LATANOPROST 2.5 ML DROPS (XALATAN) OP SCH (21:00)
[2022-02-04] MEDS: PHENAZOPYRIDINE HCL 100 MG TABLET PO SCH (21:55)
[2022-02-04 23:40] VITALS: BP_SYST 184
[2022-02-05] VITALS: BP_SYST 184
--- NOTE | 2022-02-05 | NUR ---
restraint documentation. Pt begining to become aggitated, will call MD for a repeat order for ativan.
--- NOTE | 2022-02-05 03:20 | NUR ---
tried to contact MD. no response will attempt again through the night.
--- NOTE | 2022-02-05 03:54 | NUR ---
2ND ATTEMPT tried to contact MD. no response will attempt again through the night.
[2022-02-05 07:00] VITALS: BP_SYST 164
--- NOTE | 2022-02-05 07:13 | NUR ---
receive the patient from the slot shift supervisor rn in a stable condition with admitting diagnosis of episode of syncope aox1 with episode of confusion . no sign and symptoms of respiratory distress . no complain of pain . will continue to monitor
--- NOTE | 2022-02-05 08:55 | NUR ---
PAYROLL BOOKKEEPER ACSW Roxy responded to a Hospice eval order from Dr. Velarde. ACSW Roxy contacted patient's Gwen Bunn to discuss hospice eval. Gwen expressed her ongoing concern for patient's condition and stated "I told Dr. Velarde I think it's time to think about hospice". ACSW utilized empathetic and reflective listening techniques to provide support and acknowledge her concerns and questions. Patient's will move forward with [facility]. ACSW also encouraged her to express concerns and questions to hospice provider. ACSW will continue to be available as needed
[2022-02-05] MEDS ORDERED: CITALOPRAM HYDROBROMIDE 20 MG TABLET PO SCH (09:00)
[2022-02-05] MEDS ORDERED: ASPIRIN 81 MG TABLET(ECOTRIN) PO SCH (09:00)
[2022-02-05] MEDS ORDERED: BETA-CAROTENE W-C & E/ZN/CU TABLET PO SCH (09:00)
[2022-02-05] MEDS: TIMOLOL MALEATE 0.5% OPHTHALMIC DROPS 5 ML OP SCH (09:04)
[2022-02-05] MEDS: BRIMONIDINE TARTRATE 0.2% 5 mL EYE DROPS OP SCH (09:04)
[2022-02-05] MEDS: ASPIRIN 81 MG TAB.CHEW PO SCH (09:05)
[2022-02-05] MEDS: TAMSULOSIN HCL 0.4 MG CAP PO SCH (09:05)
[2022-02-05] MEDS: PHENAZOPYRIDINE HCL 100 MG TABLET PO SCH (09:05)
[2022-02-05] MEDS: ENOXAPARIN SODIUM 40 MG/0.4 ML SYRINGE SUBCUT SCH (09:06)
[2022-02-05] MEDS: ATORVASTATIN 20 MG TABLET PO SCH (09:06)
[2022-02-05] MEDS: D5/0.45 NS 1,000 ML IV SCH (09:07)
--- NOTE | 2022-02-05 10:05 | NUR ---
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
--- NOTE | 2022-02-05 11:34 | NUR ---
caseworker from [facility] called for an update of the patient . 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
[2022-02-05 12:00] VITALS: BP_SYST 156
--- NOTE | 2022-02-05 13:07 | NUR ---
Nutritional follow up Admitting Diagnosis Snycope Reviewed Pertinent Medical/Surgical Hx Medical Record, patient Medical History Comment: per EMR: 76y male with PMHx dementia, renal amyloidosis, DM, glaucoma, and recurrent syncopal episodes BIBA c/o syncopal episode at home. Pt reports his L leg gave out resulting in mechanical fall. S/p EKG with no significant abnormalities. S/p head CT with no acute abnormalities. Subjective Information RD rounded to patient room and the patient was awake, mumbling softly to himself, continues to refuse meals, Glucerna provided TID to supplement diet. 01/30: Pt noted with improved glycemic control and POC glucose 89 mg/dL. Still no BM, no PRN bowel regimen ordered. Patient weight 134#/ 61kg noted to be estimated by staff. Current Diet Order/Nutrition Support Cardiac x 2 Patient/Significant Other Unable To Verbalize Education Provided Not Indicated Pertinent Medications D5 1/2NS @ 75mL provides up to 306 Kcals, lipitor Pertinent Labs 02/01: all drawn labs WNL Height (Feet) 5 feet Height (Inches) 7.00 inches Weight (Pounds) 134 pounds Weight (Calculated Kilograms) 60.035950 kilograms Patient Weight 60.781 kg Body Mass Index 20.98 kg/m2 %IBW 90 [place]/Adjusted Body Weight 148#/ 67kg Recent Weight Change Unable to assess Weight Status Appropriate Gastrointestinal Symptoms None Skin Integrity Comment: Ty Score 11: Skin intact per EMR 02/05 No edema documented per EMR Current % PO Negligible <25% Estimated Energy Expenditure (kcals/day) 4089-1773 (25-30 kcal/kg CBW d/t normal BMI, GERIAT maintenance) Estimated Protein Required (g/day) 60-90 (1-1.5 g/kg CBW d/t normal BMI, GERIAT maintenance) Estimated Fluid Required (l/day) 1.5-1.8 (1mL/kcal for maintenance) Problem/Etiology/Signs/Symptoms * Inadequate oral intake r/t refusing meals a/e/b 0 documented meals x 2 days (Initial) Expected Outcomes/Goals PO intake meets >85% estimated nutritional needs, skin integrity/ weight maintenance, nutrition-related labs trending WNL, BM q 1-3 days Dietitian Recommendations * Please consider liberalizing to a regular diet * May benefit from dysphagia evaluation * Provide Glucerna TID * Recommend daily multivitamin * Consider PRN bowel regimen such as Colace and/or Senna * If consistent with goals of care, consider enteral nutrition provision Follow Up High Risk: F/U in 2-3days
[2022-02-05 14:38] VITALS: BP_SYST 164
--- NOTE | 2022-02-05 15:47 | NUR ---
gave report to EMT transport , discontinue the iv site . 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
== END 2022-02-05 16:00 | disposition hospice, home (50) | DRG 312 ==
LOC: SED 12:10 → STU 17:39 → SMU 02-05 11:44
PROVIDERS: ADMIT Internal Medicine; ATTEND Internal Medicine
PROC: 4A00X4Z Measurement of Central Nervous Electrical Activity, External Approach (ICD-10-PCS; principal; 2022-02-02)
DX: R55 Syncope and collapse (principal); N17.0 Acute kidney failure with tubular necrosis; E85.89 Other amyloidosis; R40.4 Transient alteration of awareness; I12.9 Hypertensive chronic kidney disease with stage 1 through stage 4 chronic kidney disease, or unspecified chronic kidney disease; F03.C0 Unspecified dementia, severe, without behavioral disturbance, psychotic disturbance, mood disturbance, and anxiety; Z20.822 Contact with and (suspected) exposure to COVID-19; E11.22 Type 2 diabetes mellitus with diabetic chronic kidney disease; N18.9 Chronic kidney disease, unspecified; N40.0 Benign prostatic hyperplasia without lower urinary tract symptoms; Z79.82 Long term (current) use of aspirin; Z79.899 Other long term (current) drug therapy
CPT/HCPCS: 36415; 70450-TC; 70496; 70498; 70551; 71045; 76376; 76770; 80048; 80053; 82140; 82533; 82550; 83605; 84443; 84484; 85025; 93005; 94760; 95816; 99285; G0378; J1650; J2060; J3490; J7030; J7613; Q9967